=== PATIENT | male | born 1960 | race Caucasian/White ===

== ENCOUNTER 2017-05-01 13:56 | Observation (INO) ==
--- OUTSIDE RECORDS SUMMARY | 2017-05-01 14:08 | External Medical Summary | Referral Summary ---
:1960 Author Organization [facility] Address [address] [place] [address] Care Team Providers Name Role Phone Prasanth Tenorio Primary Care Physician Encounter [facility] Date(s): 12/10/14 - 12/10/14 [facility] [address] [place] [address]- [place] Discharge Diagnosis: Prostate cancer screening Discharge Diagnosis: Well adult exam Discharge Diagnosis: SCC (squamous cell carcinoma), face Discharge Diagnosis: Colon cancer screening Discharge Disposition: 01-Home or Self Care Attending Physician: Prasanth Tenorio MD Admitting Physician: Prasanth Tenorio MD Vital Signs Most recent to oldest [Reference Range]: 1 Peripheral Pulse Rate [60-100 bpm] 60 bpm (12/10/14 4:22 PM) Blood Pressure [90-140/60-90 mmHg] 122/78 mmHg (12/10/14 4:22 PM) Problem List Condition Effective Dates Status Health Status Informant Actinic keratosis(Confirmed) Active Adhesive capsulitis of left Active shoulder(Confirmed) Xerosis of skin(Confirmed) Active Bloating(Confirmed) Resolved Cutaneous horn(Confirmed) Active Head trauma(Confirmed) Active Skin cancer-HX OF SCC(Confirmed) Active Solar degeneration(Confirmed) Active Allergies, Adverse Reactions, Alerts No Known Medication Allergies Medications Bactrim DS 800 mg-160 mg oral tablet 1 tabs, Oral, BID, X 10 days, # 20 tabs, 0 Refill(s), Pharmacy: [id number] Start Date: 04/28/15 Stop Date: 05/08/15 Status: Orderedibuprofen 200 mg oral capsule 400 mg 2 caps, Oral, q4hr, as needed for pain, 0 Refill(s) Start Date: 11/29/14 Status: OrderedMucinex mg, Oral, q12hr, 0 Refill(s) Start Date: 01/02/15 Status: Orderedpolymyxin B-trimethoprim 10,000 units-1 mg/mL ophthalmic solution See Instructions, 1 drop the affected eye q3hr to 6 hours, # 5 mL, 0 Refill(s), Pharmacy: [id number] Start Date: 01/02/15 Status: Ordered Results No data available for this section Immunizations Vaccine Date Refusal Reason tetanus/diphth/pertuss (Tdap) adult/adol 11/25/11 Procedures Procedure Date Related Diagnosis Body Site Colonoscopy 2013 Tonsillectomy Social History Social History Type Response Smoking Status Never smoker Assessment and Plan Extracted from: Title: Wellness 95826 Author: Prasanth Tenorio MD Date: 12/10/14 Assessment/Plan 1.Well adult exam No new major complications. He does have good lifestyle choices. His weight is relatively stable and no other complications. 2.SCC (squamous cell carcinoma), face Subsequently removed and appears to be cured. 3.Prostate cancer screening No obvious signs of neoplasm. 4.Colon cancer screening No obvious neoplasm. His last colonoscopy was just 2 years ago so we'll continue to follow. Plan: He may certainly participate inany activities. I did fill outhis form for [employer]. Continue everything else as he is doing. No other testing at this time. I will see him back in ano ther year for comprehensive exam. If he has other problems, get back with me prior to that. Future Scheduled TestsReferralReturn to Clinic 01/02/15 9:52 PMReturn to Clinic 10:46 PM Referrals to Other Providers Referred by: Nathaly Douglas APRN Referred by: Nathaly Douglas APRN
--- OUTSIDE RECORDS SUMMARY | 2017-05-01 14:08 | External Medical Summary | Referral Summary ---
:1960 Author Organization [facility] Address [address] [place] [address] Care Team Providers Name Role Phone Prasanth Tenorio Primary Care Physician Encounter [facility] [id number] Date(s): 05/04/16 - 05/04/16 [facility] [address] [place] [address]- [place] Discharge Diagnosis: Seborrheic keratoses Discharge Diagnosis: History of basal cell carcinoma Discharge Diagnosis: Actinic keratoses Discharge Disposition: 01-Home or Self Care Attending Physician: Koby Delgadillo MD Admitting Physician: Koby Delgadillo MD Referring Physician: Prasanth Tenorio MD Vital Signs No data available for this section Problem List Condition Effective Dates Status Health Status Informant Actinic keratosis(Confirmed) Active Adhesive capsulitis of left Active shoulder(Confirmed) Xerosis of skin(Confirmed) Active Bloating(Confirmed) Resolved Cutaneous horn(Confirmed) Active Dyspepsia(Confirmed) Active Head trauma(Confirmed) Active Skin cancer-HX OF SCC(Confirmed) Active Encounter for well adult exam with Active abnormal findings(Confirmed) Prostate cancer screening(Confirmed) Active Solar degeneration(Confirmed) Active Allergies, Adverse Reactions, Alerts No Known Medication Allergies Medications Efudex 5% topical cream See Instructions, apply at bedtime to ears,neck,arms, and hands, # 40 g, 1 Refill(s), Pharmacy: [id number] Start Date: 08/28/15 Status: Orderedibuprofen 200 mg oral capsule 400 mg 2 caps, Oral, q4hr, as needed for pain, 0 Refill(s) Start Date: 11/29/14 Status: OrderedMucinex mg, Oral, q12hr, 0 Refill(s) Start Date: 01/02/15 Status: Orderedpolymyxin B-trimethoprim 10,000 units-1 mg/mL ophthalmic solution See Instructions, 1 drop the affected eye q3hr to 6 hours, # 5 mL, 0 Refill(s), Pharmacy: [id number] Start Date: 01/02/15 Status: Ordered Results No data available for this section Immunizations Vaccine Date Refusal Reason tetanus/diphth/pertuss (Tdap) adult/adol 11/25/11 Procedures Procedure Date Related Diagnosis Body Site Destruction (eg, laser surgery, electrosurgery, 05/04/16 cryosurgery, chemosurgery, surgical curettement), premalignant lesions (eg, actinic keratoses); first lesion Destruction (eg, laser surgery, electrosurgery, 05/04/16 cryosurgery, chemosurgery, surgical curettement), premalignant lesions (eg, actinic keratoses); second through 14 lesions, each (List separately in addition to code for first lesion) Colonoscopy 2010 Tonsillectomy Social History Social History Type Response Smoking Status Never smoker Assessment and Plan Extracted from: Title: Office Visit Note Author: Koby Delgadillo MD Date: 05/04/16 Assessment/Plan 1.Actinic keratoses -13 lesions; see physical examination above for locations -Cryotherapy x2 cycle(s) (10 second freeze-thaw cycle) -Encouraged monthly skin self-examination and warning signs of non-melanoma skin cancer discussed -Discussed proper sun protective behavior including: avoiding the hours of peak sun exposure (10am-2pm), wearing sunscreen SPF 30 or higher and reapplying every 2 hours for prolonged sun exposure, and wearing sun protective clothing including a wide brimmed hat -Return to clinic in6 months -Encouraged pt to schedule an earlier f/u appointment if concerning lesions develop or if treated lesions do not resolve in 6 weeks Ordered: Destruction premalignant lesion 1st 06608 Destruction premalignant lesion 2-14, Each 04519 Office Visit Level 3 Est 95623 2.Seborrheic keratoses -Reassurance regarding the benign nature of these lesions -Discussed ABCDEs of melanoma and recommended monthly skin self-examination -Recommended pt schedule a clinic appointment for anyconcerning lesions Ordered: Office Visit Level 3 Est 35280 3.History of basal cell carcinoma -No evidence of recurrence today -Warning signs of non-melanoma skin cancer discussed -Recommended monthly skin self-examination -Discussed proper sun protective behavior including: avoiding the hours of peak sun exposure (10am-2pm), wearing sunscreen SPF 30 or higher and reapplying every 2 hours for prolonged sun exposure, a nd wearing sun protective clothing including a wide brimmed hat -RTC 6 months
--- NOTE | 2017-05-01 14:10 | Emergency Department Report ---
General Adult HPI - General Stated complaint: cp Time Seen by Provider: 05/01/17 14:05 Source: patient Mode of arrival: ambulatory Limitations: no limitations - History of Present Illness HPI narrative: 66-year-old male presents the emergency department with a chief complaint of chest discomfort. Patient noted onset of symptoms today at approximately 0830 while sitting and watching a parade. Patient describes his discomfort as moderate. It is dull. It is a pressure sensation without radiation. He does not note any exacerbating or remitting factors. Patient denies any other complaints or associated symptoms. Symptoms have been persistent in nature since onset. Patient denies any personal history of coronary artery disease. He has never had a cardiac catheterization. He has had a stress test "several years ago." Patient does note a strong family history of coronary artery disease in his father at approximately the patient's age. - Related Data Home Medications Medication Instructions Recorded Confirmed Simvastatin 20 mg PO HS #30 10/09/16 05/01/17 Aspirin [Ecotrin] 81 mg PO HS 05/01/17 05/01/17 Cholecalciferol (Vitamin D3) 1 tab PO DAILY 05/01/17 05/01/17 [Vitamin D3] Cinnamon Bark [Cinnamon] 2 cap PO DAILY 05/01/17 05/01/17 Garlic 1 each PO DAILY 05/01/17 05/01/17 Metformin HCl [Metformin HCl ER] 1,000 mg PO HS 05/01/17 05/01/17 Sodium Chloride/Sodium Bicarb 1 spray IZABEL HS PRN 05/01/17 05/01/17 [Nasa Mist Saline [place]] Allergies Allergy/AdvReac Type Severity Reaction Status Date / Time No Known Allergies Allergy Verified 05/01/17 15:36 Review of Systems Constitutional: Denies: fever, chills Eyes: Denies: eye pain, vision change ENT: Denies: ear pain, throat pain Cardiovascular: Reports: chest pain. Denies: palpitations Respiratory: Denies: cough, dyspnea Gastrointestinal: Denies: abdominal pain, nausea, vomiting, diarrhea Genitourinary: Denies: urgency, dysuria Musculoskeletal: Denies: back pain, arthralgia Integumentary: Denies: erythema, rash Neurological: Denies: headache, numbness Psychiatric: Denies: anxiety, depression Endocrine: Denies: fatigue, heat or cold intolerance Hematological/Lymphatic: Denies: easy bleeding, easy bruising Allergic/Immunologic: Denies: facial swelling, urticaria PFSH Patient Stated Medical History Diabetes Mellitus Type 2 Yes: Metformin HLD, DM2 Surgical History: Tonsillectomy Family History: Reviewed and noncontributory. - Social History Smoking status: Never smoker Substance use type: does not use Alcohol intake frequency: does not drink Physical Exam - Limitations Limitations: no limitations - General General appearance: alert, in no apparent distress - Normal Exams: Head:: Normocephalic without trauma Eyes:: Pupils are PERRLA w/ EOMI, No scleral icterus, irritation, or foreign bodies noted ENMT:: No facial trauma, nasal exudates, pharyngeal erythema, or exudates are noted Dental: No fractured, loose, or missing teeth noted Neck:: Full range of motion, without adenopathy, JVD, bruits or thyromegaly Chest/Respirations:: Clear all lema, with good airflow, and symmetry bilaterally Cardiovascular:: Regular rate and rhythm, without murmur or gallop, Pulses 2+ all extremities, capillary refill, <2 seconds all extremities Abdomen:: Bowel sounds positive, soft, non-tender, non-distended, no hepatosplenomegaly, masses or bruits noted Lymphatic:: No lymphadenopathy, or lymphedema noted Musculoskeletal:: No tenderness, or deformity noted, good range of motion, all extremities Integumentary:: No rashes, hives, or bruising noted, hair and nails, without abnormality Neurological:: Patient is alert, and oriented, cranial nerves, motor/sensory/ cerebellar, exams w/o gross deficits, to observation Psychiatric:: Patient exhibits, appropriate attention, emotion and affect Course Vital Signs Temperature 98.6 F 05/01/17 13:56 Respiratory Rate 20 05/01/17 13:56 Temperature 99.9 F 05/01/17 15:36 Pulse Rate 91 05/01/17 15:48 Respiratory Rate 24 05/01/17 15:30 Blood Pressure 139/88 05/01/17 15:36 Pulse Oximetry 98 05/01/17 15:36 Medical Decision Making - MDM Narrative Medical decision making narrative: Labs / imaging were discussed in detail with the patient and questions are answered. Patient is given 324 mg of aspirin by mouth 1 in the emergency Department. Patient's EKGs are reviewed with Dr. Amirani of cardiology and questions are answered. Patient declines recommended sublingual nitroglycerin/ analgesic pain medication. Cardiology does not feel that STEMI criteria is noted on either EKG. Troponin is negative. Patient's symptoms began at approximately 0830 today and if this was a true cardiac process than his troponin should be elevated by now. Patient is admitted to the service of Dr. Bal in improved condition. He will be admitted to the CCU for further evaluation and treatment. Patient is in agreement with the current plan of management. No further orders from cardiology and recommendations were followed. - Differential Diagnosis SC, Pericarditis, Pneumothorax, Chest wall pain - Lab Data Result diagrams: 05/01/17 14:12 05/01/17 14:12 Lab Results 05/01/17 05/01/17 05/01/17 Range/Units 14:12 14:12 14:12 WBC 13.0 H (4.5-11.0) T/MM3 RBC 5.38 (4.50-5.90) M/MM3 Hgb 15.9 (13.5-17.5) GM/DL Hct 46.8 (41-53) % MCV 87.0 (80-100) UM3 MCH 29.6 (26-34) UUG MCHC 34.0 (31-37) GM/DL RDW Std Deviation 40.5 (36.9-50.2) FL Plt Count 193 (130-400) T/MM3 MPV 11.3 (9.4-12.4) UM3 Immature Gran % (Auto) Not performed Neut % (Auto) Not performed Lymph % (Auto) Not performed [place] % (Auto) Not performed Eos % (Auto) Not performed Baso % (Auto) Not performed Neut # (Auto) Not performed Lymph # (Auto) Not performed [place] # (Auto) Not performed Eos # (Auto) Not performed Baso # (Auto) Not performed Abs Immat Gran (auto) Not performed Neutrophils % (Manual) 92.0 H (33-66) % Lymphocytes % (Manual) 4.0 L (23-45) % Reactive Lymphs % 1.0 H (0-0) % Monocytes % (Manual) 2.0 (0-9.0) % Basophils % (Manual) 1.0 (0-2) % Neutrophils # (Manual) 12.0 H (1.8-7.7) T/MM3 Lymphocytes # (Manual) 0.5 L (1-4.8) T/MM3 Abs React Lymphs (Man) 0.1 H (0-0) T/MM3 Monocytes # (Manual) 0.3 (0-0.8) T/MM3 Basophils # (Manual) 0.1 (0-0.2) T/MM3 RBC Morph Comment Normal Turbidity < 20 (0-20) Sodium 143 (134-144) MEQ/L Potassium 3.7 (3.6-5) MEQ/L Chloride 103 (98-107) MEQ/L Carbon Dioxide 27 (22-30) MEQ/L Anion Gap 13 (5-15) MEQ/L BUN 18.0 (9-20) MG/DL Creatinine 1.0 (0.8-1.5) MG/DL GFR Calculation 77 BUN/Creatinine Ratio 18 (6-26) RATIO Glucose 149 H (75-110) MG/DL Calculated Osmolality 280 (261-280) MOSM/KG Calcium 9.1 (8.4-10.2) MG/DL Total Bilirubin 1.10 (0.20-1.30) MG/DL Icterus Index < 2 (0-7) AST 25 (17-59) U/L ALT 50 (21-72) U/L Alkaline Phosphatase 84 (38-126) U/L Troponin I < 0.012 (0-0.12) ng/ml C-Reactive Protein 8.2 (0-9) MG/L Total Protein 7.9 (6.3-8.2) G/DL Albumin 4.6 (3.5-5.0) G/DL Globulin 3.3 (2.4-3.6) G/DL Albumin/Globulin Ratio 1.4 (1.1-2.2) RATIO Specimen Hemolysis < 15 (0-25) - Radiology Data CXR - No acute processes. - EKG Data EKG #1 EKG results narrative: Sinus rhythm. 91 bpm. No STEMI. Ekg Reviewed with Dr. Bal of Cardiology. EKG #2 EKG results narrative: In her tachycardia. 100 bpm. No STEMI. Reviewed with Dr. Bal. Disposition Clinical Impression: Chest pain Qualifiers: Chest pain type: unspecified Qualified Code(s): R07.9 - Chest pain, unspecified Disposition: 02 To [facility] Acute Care Condition: Improved Time of Disposition: 14:45 (Admit. Dr. Bal. ) - Seen By: physician
--- OUTSIDE RECORDS SUMMARY | 2017-05-01 14:11 | External Medical Summary | Referral Summary ---
:1960 Author Organization [facility] Address [address] [place] [address] Care Team Providers Name Role Phone Prasanth Tenorio Primary Care Physician Encounter [facility] Date(s): 12/10/14 - 12/10/14 [facility] [address] [place] [address]- [place] Discharge Diagnosis: Prostate cancer [...] days, # 20 tabs, 0 Refill(s), Pharmacy: [id number] Start Date: 04/28/15 Stop Date: 05/08/15 Status: Orderedibuprofen 200 mg oral capsule 400 mg 2 caps, Oral, q4hr, as needed for pain, 0 Refill(s) Start Date: 11/29/14 Status: OrderedMucinex mg, Oral, q12hr, 0 Refill(s) Start Date: 01/02/15 Status: Orderedpolymyxin B-trimethoprim 10,000 units-1 mg/mL ophthalmic solution See Instructions, 1 drop the affected eye q3hr to 6 hours, # 5 mL, 0 Refill(s), Pharmacy: [id number] Start Date: 01/02/15 Status: Ordered Results No data available for this section Immunizations Vaccine Date Refusal Reason tetanus/diphth/pertuss (Tdap) adult/adol 11/25/11 Procedures Procedure Date Related Diagnosis Body Site Colonoscopy 2013 Tonsillectomy Social History Social History Type Response Smoking Status Never smoker Assessment and Plan Extracted from: Title: Wellness 10848 Author: Prasanth Tenorio MD Date: 12/10/14 Assessment/Plan [...] activities. I did fill outhis form for [employer] camp. Continue everything else as he is [...]
--- OUTSIDE RECORDS SUMMARY | 2017-05-01 14:11 | External Medical Summary | Referral Summary ---
:1960 Author Organization [facility] Address [address] [place] [address] Care Team Providers Name Role Phone Prasanth Tenorio Primary Care Physician Encounter [facility] Date(s): 10/17/15 - 10/17/15 [facility] [address] [place] [address]- [place] Discharge Diagnosis: Seborrheic keratoses Discharge Diagnosis: Neoplasm of uncertain behavior of skin Discharge Diagnosis: Dermatitis Discharge Diagnosis: Actinic keratoses Discharge Disposition: 01-Home or Self Care Attending Physician: Koby Delgadillo MD Referring Physician: Prasanth [...] hands, # 40 g, 1 Refill(s), Pharmacy: [facility] [id number] Start Date: 08/28/15 Status: Orderedibuprofen 200 mg oral capsule 400 mg 2 caps, Oral, q4hr, as needed for pain, 0 Refill(s) Start Date: 11/29/14 Status: OrderedMucinex mg, Oral, q12hr, 0 Refill(s) Start Date: 01/02/15 Status: Orderedpolymyxin B-trimethoprim 10,000 units-1 mg/mL ophthalmic solution See Instructions, 1 drop the affected eye q3hr to 6 hours, # 5 mL, 0 Refill(s), Pharmacy: [facility] [id number] Start Date: 01/02/15 Status: Orderedtriamcinolone 0.1% topical ointment 1 sandee, Topical, BID, Apply to affected areas twice daily., X 90 days, # 60 g, 1 Refill(s), Pharmacy:[facility] [id number] Start Date: 09/17/15 Stop Date: 03/15/16 Status: Ordered Results No data available for this section Immunizations Vaccine Date Refusal Reason tetanus/diphth/pertuss (Tdap) adult/adol 11/25/11 Procedures Procedure Date Related Diagnosis Body Site Biopsy of skin, subcutaneous tissue and/or mucous 10/17/15 membrane (including simple closure), unless otherwise listed; single lesion Destruction (eg, laser surgery, electrosurgery, 10/17/15 cryosurgery, chemosurgery, surgical curettement), premalignant lesions (eg, actinic keratoses); first lesion Destruction (eg, laser surgery, electrosurgery, 10/17/15 cryosurgery, chemosurgery, surgical curettement), premalignant lesions (eg, actinic keratoses); second through 14 lesions, each (List separately in addition to code for first lesion) Colonoscopy 2013 Tonsillectomy Social History Social History Type Response Smoking Status Never smoker Assessment and Plan Extracted from: Title: Office Visit Note Author: Koby Delgadillo MD Date: 10/17/15 Assessment/Plan 1.Neoplasm of uncertain behavior of skin -Location: L preauricular cheek -DDX: BCC vs ISK vs Alejandro hyperplasia; if NMSC I can treat this lesion in my procedure clinic -Shave biopsy today -Signed consent was obtained prior to the procedure. A photograph was obtained. The area was cleansed with an alcohol pad and 2 cc of 1% lidocaine with epinephrine was injected for local anesthesi a. The lesion was shaved using a dermablade and aluminum chloride was utilized for hemostasis. Vaseline ointment and a bandage was applied. The pt tolerated the procedure well and left the clinic in excellent condition. Ordered: Biopsy Of Skin, Single Lesion 33789 Office Visit Level 3 Est 84063 2.Actinic keratoses -3 lesions; see physical examination above for locations [...] 6 weeks Ordered: Destruction premalignant lesion 1st 05761 Destruction premalignant lesion 2-14, Each 60631 Office Visit Level 3 Est 74006 3.Seborrheic keratoses -Reassurance regarding the benign nature of these lesions -Discussed ABCDEs of melanoma and recommended monthly skin self-examination -Recommended pt schedule a clinic appointment for anyconcerning lesions Ordered: Office Visit Level 3 Est 99084 4.Dermatitis -Reaction to efudex with secondary impetiginization -Resolved currently -Continue emollient use in effected area twice daily. Ordered: Office Visit Level 3 Est 26073 Future Scheduled TestsReferralReturn to Clinic 01/02/15 9:52 PMReturn to Clinic 10:46 PM Referrals to Other Providers Referred by: Nathaly Douglas APRN Referred by: Nathaly Douglas APRN
--- OUTSIDE RECORDS SUMMARY | 2017-05-01 14:16 | External Medical Summary | Referral Summary ---
:1960 Author Organization [facility] Address [address] [place] [address] Care Team Providers Name Role Phone Prasanth Tenorio Primary Care Physician Encounter [facility] Date(s): 01/05/15 - 01/05/15 [facility] [address] [place] [address] - [place] Discharge Diagnosis: Acute URI Discharge Disposition: 01-Home or Self Care Attending Physician: Provider, Immediate Care Admitting Physician: Provider, Immediate Care Vital Signs Most recent to oldest [Reference Range]: 1 Temperature Oral [35.8-37.3 degC] 36.7 degC (01/05/15 1:08 PM) Peripheral Pulse Rate [60-100 bpm] 102 bpm *HI* (01/05/15 1:08 PM) Blood Pressure [90-140/60-90 mmHg] 131/85 mmHg (01/05/15 1:08 PM) SpO2 95 % (01/05/15 1:08 PM) Problem List Condition Effective Dates Status Health Status Informant Actinic keratosis(Confirmed) Active Adhesive capsulitis of left Active shoulder(Confirmed) Xerosis of skin(Confirmed) Active Bloating(Confirmed) Resolved Cutaneous horn(Confirmed) Active Head trauma(Confirmed) Active Skin cancer-HX OF SCC(Confirmed) Active Solar degeneration(Confirmed) Active Allergies, Adverse Reactions, Alerts No Known Medication Allergies Medications ibuprofen 200 mg oral capsule 400 mg 2 caps, Oral, q4hr, as needed for pain, 0 Refill(s) Start Date: 11/29/14 Status: OrderedMucinex mg, Oral, q12hr, 0 Refill(s) Start Date: 01/02/15 Status: Orderedpolymyxin B-trimethoprim 10,000 units-1 mg/mL ophthalmic solution See Instructions, 1 drop the affected eye q3hr to 6 hours, # 5 mL, 0 Refill(s), [id number] Start Date: 01/02/15 Status: Ordered Results No data available for this section Immunizations Vaccine Date Refusal Reason tetanus/diphth/pertuss (Tdap) adult/adol 11/25/11 Procedures Procedure Date Related Diagnosis Body Site Colonoscopy 2013 Tonsillectomy Social History Social History Type Response Smoking Status Never smoker Assessment and Plan Extracted from: Title: Office Visit Note Author: Monik Devi Date: 01/05/15 Assessment/Plan 1.Acute URI Z-Keith as directed. Promethazine with codeine as needed for cough. Resume use Mucinex as directed to help with congestion. If symptoms do not improve with treatment, follow-up for reevaluation. Ordered: Office Visit Level 3 Est 78151 Orders: promethazine-codeine, 5 mL, Oral, q4hr, as needed for cough, # 120 mL , 0 Refill(s) Future Scheduled TestsReferralReturn to Clinic 01/02/15 9:52 PMReturn to Clinic 10:46 PM Referrals to Other Providers Referred by: Nathaly Douglas APRN Referred by: Nathaly Douglas APRN
--- OUTSIDE RECORDS SUMMARY | 2017-05-01 14:16 | External Medical Summary | Referral Summary ---
:1960 Author Organization [facility] Address [address] [place] [address]- Care Team Providers Name Role Phone Prasanth Tenorio Primary Care Physician Encounter VC Date(s): 11/14/14 - 11/14/14 [facility] [address] [place] [address] - Discharge Disposition: 01-Home or Self Care Attending Physician: Armando Beverly Admitting Physician: Armando Beverly Referring Physician: Prasanth Tenorio MD Vital Signs [...] hours, # 5 mL, 0 Refill(s), Pharmacy: [id number] Start Date: 01/02/15 Status: Ordered Results No data available for this section Immunizations Vaccine Date Refusal Reason tetanus/diphth/pertuss (Tdap) adult/adol 11/25/11 Procedures Procedure Date Related Diagnosis Body Site Biopsy of skin, subcutaneous tissue and/or mucous 11/14/14 membrane (including simple closure), unless otherwise listed; single lesion Colonoscopy 2013 Tonsillectomy Social History Social History Type Response Smoking Status Never smoker Assessment and Plan Extracted from: Title: Office Visit Note Author: Armando Beverly Date: 11/14/14 Assessment/Plan Actinic dermatitis Instructed/reminded patient on correct application and use of sunscreen. Apply SPF 30 or higher with UVA and UVB protection. Ordered: Office Visit Level 3 Est 40944 Neoplasm of uncertain behavior of skin Shave biopsy was performed on the right scalp to rule out BCC versus SCC versus other. Area was cleansed with an alcohol pad and injected with 1% lidocaine and epinephrine. A blue blade was used for the shave removal; Drysol/light cauterization was used for hemostasis. Antibiotic ointment was applied and covered with a bandage/gauze. Specimen was sent to patho logy and we will notify patient of results as soon as it is available. Wound care instructions were given. The procedure and possible risk of scarring and infection was discussed in detail; consent forms were signed and all questions were answered. Ordered: Biopsy Of Skin, Single Lesion 93579 Office Visit Level 3 Est 51579 Future Scheduled TestsReferralReturn to Clinic 01/02/15 9:52 PMReturn to Clinic 10:46 PM Referrals to Other Providers Referred by: Nathaly Douglas APRN Referred by: Nathaly Douglas APRN
--- OUTSIDE RECORDS SUMMARY | 2017-05-01 14:16 | External Medical Summary | Referral Summary ---
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 Discharge Disposition: 01-Home or Self Care Attending Physician: Diane Dominguez Admitting Physician: Diane Dominguez Vital Signs No data available for this [...] hours, # 5 mL, 0 Refill(s), Pharmacy: [facility] [id number] Start Date: 01/02/15 Status: Ordered Results No data available for this section Immunizations Vaccine Date Refusal Reason tetanus/diphth/pertuss (Tdap) adult/adol 11/25/11 Procedures Procedure Date Related Diagnosis Body Site Colonoscopy 2013 Tonsillectomy Social History Social History Type Response Smoking Status Never smoker Assessment and Plan Future Scheduled TestsReferralReturn to Clinic 01/02/15 9:52 PMReturn to Clinic 10:46 PM Referrals to Other Providers Referred by: Nathaly Douglas APRN Referred by: Nathaly Douglas APRN
--- OUTSIDE RECORDS SUMMARY | 2017-05-01 14:16 | External Medical Summary | Referral Summary ---
:1960 Author Organization [facility] Address [address] [place] [address] Care Team Providers Name Role Phone Prasanth Tenorio Primary Care Physician Encounter [facility] Date(s): 04/28/15 - 04/28/15 [facility] [address] [place] [address] - [place] Discharge Diagnosis: Infected puncture wound of hand Discharge Disposition: 01-Home or Self Care Attending Physician: Margret Champagne Attending Physician: Provider, Immediate Care Admitting Physician: Provider, Immediate Care Vital Signs Most recent to oldest [Reference Range]: 1 Temperature Oral [35.8-37.3 degC] 36.8 degC (04/28/15 1:06 PM) Peripheral Pulse Rate [60-100 bpm] 68 bpm (04/28/15 1:06 PM) Blood Pressure [90-140/60-90 mmHg] 131/81 mmHg (04/28/15 1:06 PM) SpO2 97 % (04/28/15 1:06 PM) Problem List Condition Effective Dates Status [...] days, # 20 tabs, 0 Refill(s), Pharmacy: [facility] [id number] Start Date: 04/28/15 Stop Date: 05/08/15 Status: Orderedibuprofen 200 mg oral capsule 400 mg 2 caps, Oral, q4hr, as needed for pain, 0 Refill(s) Start Date: 11/29/14 Status: OrderedMucinex mg, Oral, q12hr, 0 Refill(s) Start Date: 01/02/15 Status: Orderedpolymyxin B-trimethoprim 10,000 units-1 mg/mL ophthalmic solution See Instructions, 1 drop the affected eye q3hr to 6 hours, # 5 mL, 0 Refill(s), [id number] Start Date: 01/02/15 Status: Ordered Results No data available for this section Immunizations Vaccine Date Refusal Reason tetanus/diphth/pertuss (Tdap) adult/adol 11/25/11 Procedures Procedure Date Related Diagnosis Body Site Colonoscopy 2013 Tonsillectomy Social History Social History Type Response Smoking Status Never smoker Assessment and Plan Extracted from: Title: Ambulatory Patient Education Author: Margret Champagne Date: 04/28/15 Family Medicine Puncture Wound A puncture wound is an injury that extends through all layers of the skin and into the tissue beneath the skin (subcutaneous tissue). Puncture wounds become infected easily because germs often enter the body and go beneath the skin during the injury. Having a deep wound with a small entrance point makes it difficult for your caregiver to adequately clean the wound. This is especially true if you have stepped on a nail and it has passed through a dirty shoe or other situations where the wound is obviously contaminated. CAUSES Many puncture wounds involve glass, nails, splinters, fish hooks, or other objects that enter the skin (foreign bodies). A puncture wound may also be caused by a human bite or animal bite. DIAGNOSIS A puncture wound is usually diagnosed by your history and a physical exam. You may need to have an X-ray or an ultrasound to check for any foreign bodies still in the wound. TREATMENT Your caregiver will clean the wound as thoroughly as possible. Depending on the location of the wound, a bandage (dressing) may be applied. Your caregiver might prescribe antibiotic medicines. You may need a follow-up visit to check on your wound. Follow all instructions as directed by your caregiver. HOME CARE INSTRUCTIONS Change your dressing once per day, or as directed by your caregiver. If the dressing sticks, it may be removed by soaking the area in water. If your caregiver has given you follow-up instructions, it is very important that you return for a follow-up appointment. Not following up as directed could result in a chronic or permanent injury, pain, and disability. Only take giyd-pay-athftgk or prescription medicines for pain, discomfort , or fever as directed by your caregiver. If you are given antibiotics, take them as directed. Finish them even if you start to feel better. You may need a tetanus shot if: You cannot remember when you had your last tetanus shot. You have never had a tetanus shot. If you got a tetanus shot, your arm may swell, get red, and feel warm to the touch. This is common and not a problem. If you need a tetanus shot and you choose not to have one, there is a rare chance of getting tetanus. Sickness from tetanus can be serious. You may need a rabies shot if an animal bite caused your puncture wound. SEEK MEDICAL CARE IF: You have redness, swelling, or increasing pain in the wound. You have red streaks going away from the wound. You notice a bad smell coming from the wound or dressing. You have yellowish-white fluid (pus) coming from the wound. You are treated with an antibiotic for infection, but the infection is not getting better. You notice something in the wound, such as rubber from your shoe, cloth, or another object. You have a fever. You have severe pain. You have difficulty breathing. You feel dizzy or faint. You cannot stop vomiting. You lose feeling, develop numbness, or cannot move a limb below the wound. Your symptoms worsen. MAKE SURE YOU: Understand these instructions. Will watch your condition. Will get help right away if you are not doing well or get worse. Document Released: 03/24/2006 Document Revised: 09/05/2012 Document Reviewed: 12/01/2011 ExitCare Patient Information 2015 [employer], [place]. This information is not intended to replace advice given to you by your health care provider. Make sure you discuss any questions you have with your health care provider. No follow up information was provided. Extracted from: Title: Office Visit Note Author: Margret Champagne Date: 04/28/15 Assessment/Plan Infected puncture wound of hand Rocephin 1mg IM provided. Rest, ice elevate. FU tomorrow if not improving. Start Bactrim DS 1 po bid. Tdap up to date. Loose gauze wrapping provided. Questions were an swered. Patient verbalized understanding. Patient left in stable condition. Ordered: Office Visit Level 3 Est 14625 Orders: sulfamethoxazole-trimethoprim, 1 tabs, Oral, BID, X 10 days, # 20 tabs, 0 Refill(s), [facility] [id number] Future Scheduled TestsReferralReturn to Clinic 01/02/15 9:52 PMReturn to Clinic 10:46 PM Referrals to Other Providers Referred by: Nathaly Douglas APRN Referred by: Nathaly Douglas APRN
--- OUTSIDE RECORDS SUMMARY | 2017-05-01 14:16 | External Medical Summary | Referral Summary ---
:1960 Author Organization [facility] Address [address] [place] [address] Care Team Providers Name Role Phone Prasanth Tenorio Primary Care Physician Encounter VC Date(s): 08/28/15 - 08/28/15 [facility] [address] [place] [address]- [place] Discharge Disposition: 01-Home or Self Care Attending [...] hands, # 40 g, 1 Refill(s), Pharmacy: [facility] [id number] Start Date: 08/28/15 Status: Orderedibuprofen 200 mg oral capsule 400 mg 2 caps, Oral, q4hr, as needed for pain, 0 Refill(s) Start Date: 11/29/14 Status: OrderedMucinex mg, Oral, q12hr, 0 Refill(s) Start Date: 01/02/15 Status: Orderedpolymyxin B-trimethoprim 10,000 units-1 mg/mL ophthalmic solution See Instructions, 1 drop the affected eye q3hr to 6 hours, # 5 mL, 0 Refill(s), Pharmacy: [facility] [id number] Start Date: 01/02/15 Status: Ordered Results No data available for this section Immunizations Vaccine Date Refusal Reason tetanus/diphth/pertuss (Tdap) adult/adol 11/25/11 Procedures Procedure Date Related Diagnosis Body Site Colonoscopy 2013 Tonsillectomy Social History Social History Type Response Smoking Status Never smoker Assessment and Plan Extracted from: Title: Office Visit Note Author: Armando Beverly Date: 08/28/15 Assessment/Plan AK (actinic keratosis) Efudex qhs x6 weeks to the scalp, neck, forearms, and dorsum hands. Discussed possible risks and side effects of the medications. Continue photoprotection. Follow up in 6 months, sooner if needed. Ordered: Office Visit Level 3 Est 13061 Photoaging of skin Continue to monitor skin for changes and to follow up if any changes are seen. Instructed/reminded patient of proper application and use of sunscreen. Apply SPF 30 or higher with UV A and UVB protection. Skin cancersdiscussed and handout/information given. Recommend yearly skin evaluations. Ordered: Office Visit Level 3 Est 14180 Future Scheduled TestsReferralReturn to Clinic 01/02/15 9:52 PMReturn to Clinic 10:46 PM Referrals to Other Providers Referred by: Nathaly Douglas APRN Referred by: Nathaly Douglas APRN
--- OUTSIDE RECORDS SUMMARY | 2017-05-01 14:16 | External Medical Summary | Referral Summary ---
:1960 Author Organization [facility] Address [address] [place] [address] Care Team Providers Name Role Phone Prasanth Tenorio Primary Care Physician Encounter [facility] Date(s): 12/10/14 - 12/10/14 [facility] [address] [place] [address]- [place] Discharge Diagnosis: Prostate cancer [...] days, # 20 tabs, 0 Refill(s), Pharmacy: [facility] [id number] Start Date: 04/28/15 Stop Date: 05/08/15 Status: Orderedibuprofen 200 mg oral capsule 400 mg 2 caps, Oral, q4hr, as needed for pain, 0 Refill(s) Start Date: 11/29/14 Status: OrderedMucinex mg, Oral, q12hr, 0 Refill(s) Start Date: 01/02/15 Status: Orderedpolymyxin B-trimethoprim 10,000 units-1 mg/mL ophthalmic solution See Instructions, 1 drop the affected eye q3hr to 6 hours, # 5 mL, 0 Refill(s), Pharmacy: [facility] [id number] Start Date: 01/02/15 Status: Ordered Results No data available for this section Immunizations Vaccine Date Refusal Reason tetanus/diphth/pertuss (Tdap) adult/adol 11/25/11 Procedures Procedure Date Related Diagnosis Body Site Colonoscopy 2013 Tonsillectomy Social History Social History Type Response Smoking Status Never smoker Assessment and Plan Extracted from: Title: Wellness 27676 Author: Prasanth Tenorio MD Date: 12/10/14 Assessment/Plan [...] activities. I did fill outhis form for [employer]. Continue everything else as he is [...]
--- OUTSIDE RECORDS SUMMARY | 2017-05-01 14:16 | External Medical Summary | Referral Summary ---
:1960 Author Organization [facility] Address [address] [place] [address] Care Team Providers Name Role Phone Prasanth Tenorio Primary Care Physician Encounter [facility] Date(s): 12/10/14 - 12/10/14 [facility] [address] [place] [address]- [place] Discharge Diagnosis: Prostate cancer [...] hours, # 5 mL, 0 Refill(s), Pharmacy: [facility] [id number] Start Date: 01/02/15 Status: Ordered Results No data available for this section Immunizations Vaccine Date Refusal Reason tetanus/diphth/pertuss (Tdap) adult/adol 11/25/11 Procedures Procedure Date Related Diagnosis Body Site Colonoscopy 2013 Tonsillectomy Social History Social History Type Response Smoking Status Never smoker Assessment and Plan Extracted from: Title: Wellness 11390 Author: Prasanth Tenorio MD Date: 12/10/14 Assessment/Plan [...] activities. I did fill outhis form for [employer]. Continue everything else as he is doing. No other testing at this time. I will [facility] for comprehensive exam. If he has other problems, get back with me prior to that. Future Scheduled TestsReferralReturn to Clinic 01/02/15 9:52 PMReturn to Clinic 10:46 PM Referrals to Other Providers Referred by: Nathaly Douglas APRN Referred by: Nathaly Douglas APRN
--- OUTSIDE RECORDS SUMMARY | 2017-05-01 14:16 | External Medical Summary | Referral Summary ---
:1960 Author Organization [facility] Address [address] [place] [address] Care Team Providers Name Role Phone Prasanth Tenorio Primary Care Physician Encounter VC Date(s): 10/30/15 - 10/30/15 [facility] [address] [place] [address]- [place] Discharge Diagnosis: Basal cell carcinoma of left cheek Discharge Diagnosis: Actinic keratosis Discharge Disposition: 01-Home or Self Care Attending [...] hands, # 40 g, 1 Refill(s), Pharmacy: [id number] Start Date: 08/28/15 Status: Orderedibuprofen 200 mg oral capsule 400 mg 2 caps, Oral, q4hr, as needed for pain, 0 Refill(s) Start Date: 11/29/14 Status: OrderedMucinex mg, Oral, q12hr, 0 Refill(s) Start Date: 01/02/15 Status: Orderedpolymyxin B-trimethoprim 10,000 units-1 mg/mL ophthalmic solution See Instructions, 1 drop the affected eye q3hr to 6 hours, # 5 mL, 0 Refill(s), Pharmacy: [facility] [id number] Start Date: 01/02/15 Status: Orderedtriamcinolone 0.1% topical ointment 1 sandee, Topical, BID, Apply to affected areas twice daily., X 90 days, # 60 g, 1 Refill(s), Pharmacy:[id number] Start Date: 09/17/15 Stop Date: 03/15/16 Status: Ordered Results No data available for this section Immunizations Vaccine Date Refusal Reason tetanus/diphth/pertuss (Tdap) adult/adol 11/25/11 Procedures Procedure Date Related Diagnosis Body Site Destruction (eg, laser surgery, electrosurgery, 10/30/15 cryosurgery, chemosurgery, surgical curettement), premalignant lesions (eg, actinic keratoses); first lesion Excision, malignant lesion including margins, 10/30/15 face, ears, eyelids, nose, lips; excised diameter 1.1 to 2.0 cm Repair, intermediate, wounds of face, ears, 10/30/15 eyelids, nose, lips and/or mucous membranes; 2.6 cm to 5.0 cm Colonoscopy 2013 Tonsillectomy Social History Social History Type Response Smoking Status Never smoker Assessment and Plan Extracted from: Title: Ambulatory Patient Education Author: Koby Delgadillo MD Date: Family Medicine Excision of Skin Lesions Excision of a skin lesion refers to the removal of a section of skin by making small cuts (incisions) in the skin. This is typically done to remove a cancerous growth (basal cell carcinoma, squamous irma l carcinoma, or melanoma) or a noncancerous growth (cyst). It may be done to treat or prevent cancer or infection. It may also be done to improve cosmetic appearance (removal of mole, skin tag). LET YOUR CAREGIVER KNOW ABOUT: Allergies to food or medicine. Medicines taken, including vitamins, herbs, eyedrops, dnyj-jcf-cwrhkvq medicines, and creams. Use of steroids (by mouth or creams). Previous problems with anesthetics or numbing medicines. History of bleeding problems or blood clots. History of any prostheses. Previous surgery. Other health problems, including diabetes and kidney problems. Possibility of , if this applies. RISKS AND COMPLICATIONS Many complications can be managed. With appropriate treatment and rehabilitation, the following complications are very uncommon: Bleeding. Infection. Scarring. Recurrence of cyst or cancer. Changes in skin sensation or appearance (discoloration, swelling). Reaction to anesthesia. Allergic reaction to surgical materials or ointments. Damage to nerves, blood vessels, muscles, or other structures. Continued pain. BEFORE THE PROCEDURE It is important to follow your caregiver's instructions prior to your procedure to avoid complications. Steps before your procedure may include: Physical exam, blood tests, other procedures, such as removing a small sample for examination under a microscope (biopsy). Your caregiver may review the procedure, the anesthesia being used, and what to expect after the procedure with you. You may be asked to: Stop taking certain medicines, such as blood thinners (including aspirin , clopidogrel, ibuprofen), for several days prior to your procedure. Take certain medicines. Stop smoking. It is a good idea to arrange for a ride home after surgery and to have someone to help you with activities during recovery. PROCEDURE There are several excision techniques. The type of excision or surgical technique used will depend on your condition, the location of the lesion, and your overall health. After the lesion is sterilized and a local anesthetic is applied, the following may be performed: Complete surgical excision The area to be removed is marked with a pen. Using a small scalpel and scissors , the surgeon gently cuts around and under the lesion until it is completely removed. The lesion is placed in a special flu id and sent to the lab for examination. If necessary, bleeding will be controlled with a device that delivers heat. The edges of the wound are stitched together and a dressing is applied. This procedure may be performed to treat a cancerous growth or noncancerous cyst or lesion. Surgeons commonly perform an elliptical excision, to minimize scarring. Excision of a cyst The surgeon makes an incision on the cyst. The entire cyst is removed through the incision. The wound may be closed with a suture (stitch). Shave excision During shave excision, the surgeon uses a small blade or loop instrument to shave off the lesion. This may be done to remove a mole or skin tag. The wound is usually left to heal on its own without stitches. Punch excision During punch excision, the surgeon uses a small, round tool (like a cookie cutter) to cut a burns paiute shape out of the skin. The outer edges of the skin are stitched together. This may be done to remove a mole or scar or to perform a biopsy of the lesion. Mohs micrographic surgery During Mohs micrographic surgery, layers of the lesion are removed with a scalpel or loop instrument and immediately examined under a microscope until all of the abnormal or cancerous tissue is removed. This procedure is minimally invasive and ensures the best cosmetic outcome, with removal of as little normal tissue as possible. Mohs is usually done to treat skin cancer, such as basal cell carcinoma or squamous cell carcinoma, particularly on the face and ears. Antibiotic ointment is applied to the surgical area after each of the procedures listed above, as necessary. AFTER THE PROCEDURE How well you heal depends on many factors. Most patients heal quite well with proper techniques and self-care. Scarring will lessen over time. HOME CARE INSTRUCTIONS Take medicines for pain as directed. Keep the incision area clean, dry, and protected for at least 48 hours. Change dressings as directed. For bleeding, apply gentle but firm pressure to the wound using a folded towel for 20 minutes. Call your caregiver if bleeding does not stop. Avoid high-impact exercise and activities until the stitches are removed or the area heals. Follow your caregiver's instructions to minimize scarring. Avoid sun exposure until the area has healed. Scarring should lessen over time. Follow up with your caregiver as directed. Removal of stitches within 4 to 14 days may be necessary. Finding out the results of your test Not all test results are available during your visit. If your test results are not back during the visit, make an appointment with your caregiver to find out the results. Do not assume everything is nor mal if you have not heard from your caregiver or the medical facility. It is important for you to follow up on all of your test results. SEEK MEDICAL CARE IF: You or your child has an oral temperature above 102 F (38.9 C). You develop signs of infection (chills, feeling unwell). You notice bleeding, pain, discharge, redness, or swelling at the incision site. You notice skin irregularities or changes in sensation. MAKE SURE YOU: Understand these instructions. Will watch your condition. Will get help right away if you are not doing well or get worse. FOR MORE INFORMATION [employer]: www.aafp.org [employer]: www.aad.org This information is not intended to replace advice given to you by your health care provider. Make sure you discuss any questions you have with your health care provider. Document Released: 09/08/2010 Document Revised: 09/05/2012 Document Reviewed: 09/08/2010 Exit[employer] Patient Information 2014 [employer]. No follow up information was provided. Extracted from: Title: Office Visit Note Author: Koby Delgadillo MD Date: 10/30/15 Assessment/Plan 1.Basal cell carcinoma of left cheek Options/risks/benefits of the procedure were discussed and explained and signed consent was obtained. Specifically discussed risks of scarring, abnormal scar ring, skin changes such as color or texture changes, recurrence, incomplete removal, bleeding, infection, need for further treatment, damage to surrounding structures including nerves and other unexpect ed risks/outcomes of these types of skin procedures. The patient agreed to proceed with treatment. The sites were confirmed with the patient. Final timeout performed. LOCATION:Left preauricular cheek PROCEDURE: Excise with4 mm margins and close with intermediate complexity primary closure LESION SIZE (including margins):1.2 x 1.0cm FINAL INCISION LENGTH:3 cm ANESTHESIA: 1%lidocaine with 1/100,000 epinephrine=3 cc total PREP: Chlorhexidine PATH SENT: [facility] MEDICATION REVIEW: Prior to procedure, determined whether patient is taking anticoagulant medications, which (s)he is not. COMPLICATIONS: none EBL: <3cc Lesion and surrounding area were then prepped and draped in the usual, sterile fashion. The lesion was excised in an elliptical fashion with 4 mm margins to fat. Wound edges were undermined with a sca lpel. Electrocautery was used for hemostasis.4-0PDS interrupted subcutaneous sutures were placed to approximate wound edges. A runningsimple stitch with5-0 prolene suture was placed. A pressure dressing was placed. The patient tolerated the procedure well. No complications. Post-operative PLAN: - Remove pressure dressing in24 hours - Wound instructions given. - Counselled: Warnings and instructions re: bleeding and signs and symptoms of infection and hematoma. Pt provided withclinic phone number. - Pain Control: Tylenol 325 to 650mg PO q6 hours prn - Antibiotics: None indicated - Treatment plan was discussed with patient - Return to clinic7 days for sutural removal Ordered: Exc Mal Les Face Ears Nose Lips 1.1-2.0cm 66496 Intermediate Repair Wounds; Face Ears Eyelids Nose Lips 2.6-5.0cm 79633 2.Actinic keratosis -1 lesions; see physical examination above for locations [...] 6 weeks Ordered: Destruction premalignant lesion 1st 34285 Future Scheduled TestsReferralReturn to Clinic 01/02/15 9:52 PMReturn to Clinic 10:46 PM Referrals to Other Providers Referred by: Nathaly Douglas APRN Referred by: Nathaly Douglas APRN
--- OUTSIDE RECORDS SUMMARY | 2017-05-01 14:16 | External Medical Summary | Referral Summary ---
:1960 Author Organization [facility] Address [address] [place] [address] Care Team Providers Name Role Phone Prasanth Tenorio Primary Care Physician Encounter [facility] Date(s): 12/10/14 - 12/10/14 [facility] [address] [place] [address]- [place] Discharge Diagnosis: Prostate cancer [...] days, # 20 tabs, 0 Refill(s), Pharmacy: [facility] [id number] Start Date: 04/28/15 Stop Date: 05/08/15 Status: Orderedibuprofen 200 mg oral capsule 400 mg 2 caps, Oral, q4hr, as needed for pain, 0 Refill(s) Start Date: 11/29/14 Status: OrderedMucinex mg, Oral, q12hr, 0 Refill(s) Start Date: 01/02/15 Status: Orderedpolymyxin B-trimethoprim 10,000 units-1 mg/mL ophthalmic solution See Instructions, 1 drop the affected eye q3hr to 6 hours, # 5 mL, 0 Refill(s), Pharmacy: [id number] Start Date: 01/02/15 Status: Ordered Results No data available for this section Immunizations Vaccine Date Refusal Reason tetanus/diphth/pertuss (Tdap) adult/adol 11/25/11 Procedures Procedure Date Related Diagnosis Body Site Colonoscopy 2013 Tonsillectomy Social History Social History Type Response Smoking Status Never smoker Assessment and Plan Extracted from: Title: Wellness 83038 Author: Prasanth Tenorio MD Date: 12/10/14 Assessment/Plan [...] activities. I did fill outhis form for [employer]. Continue everything else as he is [...]
--- OUTSIDE RECORDS SUMMARY | 2017-05-01 14:16 | External Medical Summary | Referral Summary ---
:1960 Author Organization [facility] Address [address] [place] [address] Care Team Providers Name Role Phone Prasanth Tenorio Primary Care Physician Encounter [facility] Date(s): 12/10/14 - 12/10/14 [facility] [address] [place] [address]- [place] Discharge Diagnosis: Prostate cancer [...] days, # 20 tabs, 0 Refill(s), Pharmacy: [facility] [id number] Start Date: 04/28/15 Stop Date: 05/08/15 Status: Orderedibuprofen 200 mg oral capsule 400 mg 2 caps, Oral, q4hr, as needed for pain, 0 Refill(s) Start Date: 11/29/14 Status: OrderedMucinex mg, Oral, q12hr, 0 Refill(s) Start Date: 01/02/15 Status: Orderedpolymyxin B-trimethoprim 10,000 units-1 mg/mL ophthalmic solution See Instructions, 1 drop the affected eye q3hr to 6 hours, # 5 mL, 0 Refill(s), Pharmacy: [facility] [address] Start Date: 01/02/15 Status: Ordered Results No data available for this section Immunizations Vaccine Date Refusal Reason tetanus/diphth/pertuss (Tdap) adult/adol 11/25/11 Procedures Procedure Date Related Diagnosis Body Site Colonoscopy 2013 Tonsillectomy Social History Social History Type Response Smoking Status Never smoker Assessment and Plan Extracted from: Title: Wellness 06926 Author: Prasanth Tenorio MD Date: 12/10/14 Assessment/Plan [...] activities. I did fill outhis form for [employer]. Continue everything else as he is [...]
--- OUTSIDE RECORDS SUMMARY | 2017-05-01 14:16 | External Medical Summary | Referral Summary ---
:1960 Author Organization [facility] Address [address] [place] [address] Care Team Providers Name Role Phone Prasanth Tenorio Primary Care Physician Encounter [facility] Date(s): 11/13/14 - 11/13/14 [facility] [address] [place] [address]- [place] Discharge Diagnosis: Scalp lesion Discharge Disposition: 01-Home or Self Care Attending Physician: Nathaly Douglas APRN Admitting Physician: Nathaly Douglas APRN Vital Signs Most recent to oldest [Reference Range]: 1 Peripheral Pulse Rate [60-100 bpm] 60 bpm (11/13/14 3:44 PM) Blood Pressure [90-140/60-90 mmHg] 140/100 mmHg (11/13/14 3:44 PM) Problem List Condition Effective Dates Status [...] hours, # 5 mL, 0 Refill(s), Pharmacy: [facility] [id number] Start Date: 01/02/15 Status: Ordered Results No data available for this section Immunizations Vaccine Date Refusal Reason tetanus/diphth/pertuss (Tdap) adult/adol 11/25/11 Procedures Procedure Date Related Diagnosis Body Site Colonoscopy 2013 Tonsillectomy Social History Social History Type Response Smoking Status Never smoker Assessment and Plan Extracted from: Title: Office Visit Note-scalp lesion n Author: Nathaly Douglas APRN Date : 11/13/14 shoulder px Assessment/Plan 1.Scalp lesion Lesion is likely associated with a basal cell carcinoma. Patient is referred to a career orientation teacher for evaluation and treatment. Biopsy and lesion removal are recommended. 2.Shoulder pain Left shoulder x-ray showsa small osteophyte off of the inferior glenoid. Other than that there is no bony abnormality at this time. This is likely associated with soft tissue inj ury. I will send patient to an orthopedics for further evaluation and treatment. Future Scheduled TestsReferralReturn to Clinic 01/02/15 9:52 PMReturn to Clinic 10:46 PM Referrals to Other Providers Referred by: Nathaly Douglas APRN Referred by: Nathaly Douglas APRN
--- OUTSIDE RECORDS SUMMARY | 2017-05-01 14:20 | External Medical Summary | Referral Summary ---
:1960 Author Organization [facility] Address [address] [place] [address] Care Team Providers Name Role Phone Prasanth Tenorio Primary Care Physician Encounter [facility] Date(s): 02/26/15 - 02/26/15 [facility] [address] [place] [address]- [place] Discharge Disposition: 01-Home or [...] hands, # 40 g, 1 Refill(s), Pharmacy: [facility] [id number] Start Date: 08/28/15 Status: Orderedibuprofen 200 mg oral capsule 400 mg 2 caps, Oral, q4hr, as needed for pain, 0 Refill(s) Start Date: 11/29/14 Status: OrderedMucinex mg, Oral, q12hr, 0 Refill(s) Start Date: 01/02/15 Status: Orderedpolymyxin B-trimethoprim 10,000 units-1 mg/mL ophthalmic solution See Instructions, 1 drop the affected eye q3hr to 6 hours, # 5 mL, 0 Refill(s), Pharmacy: [facility] [id number] Start Date: 01/02/15 Status: Ordered Results No data available for this section Immunizations Vaccine Date Refusal Reason tetanus/diphth/pertuss (Tdap) adult/adol 11/25/11 Procedures Procedure Date Related Diagnosis Body Site Destruction (eg, laser surgery, electrosurgery, 02/26/15 cryosurgery, chemosurgery, surgical curettement), premalignant lesions (eg, actinic keratoses), 15 or more lesions.. Colonoscopy 2013 Tonsillectomy Social History Social History Type Response Smoking Status Never smoker Assessment and Plan Extracted from: Title: Office Visit Note Author: Armando Beverly Date: 02/26/15 Assessment/Plan AK (actinic keratosis) 21lesions were treated with LN2: scalp x5, face x3, rightarm x8,back x2left arm x3. Aftercare instructions were given to patient. Risks of scarring, infection, blisteri ng, and recurrence were discussed as well. Continue photoprotection. Follow up in 6 months, sooner if needed. Pt will consider Effudex tx during the fall and winter months; will follow up with us first. Ordered: Destruction of 15 or more premalignant lesions 05550 Office Visit Level 4 Est 19492 Photoaging of skin Continue to monitor skin for changes and to follow up if any changes are seen. Instructed/reminded patient of proper application and use of sunscreen. Apply SPF 30 or higher with UV A and UVB protection. Skin cancer discussed and handout given. Recommend yearly skin evaluations. Ordered: Office Visit Level 4 Est 85204 Seborrheic keratosis Benign, asymptomatic; reassurance was given. Ordered: Office Visit Level 4 Est 71514 Future Scheduled TestsReferralReturn to Clinic 01/02/15 9:52 PMReturn to Clinic 10:46 PM Referrals to Other Providers Referred by: Nathaly Douglas APRN Referred by: Nathaly Douglas APRN
--- OUTSIDE RECORDS SUMMARY | 2017-05-01 14:20 | External Medical Summary | Referral Summary ---
:1960 Author Organization [facility] Address [address] [place] [address] Care Team Providers Name Role Phone Prasanth Tenorio Primary Care Physician Encounter [facility] Date(s): 11/06/15 - 11/06/15 [facility] [address] [place] [address]- [place] Discharge Disposition: 01-Home or [...] hands, # 40 g, 1 Refill(s), Pharmacy: [id number] Start Date: 08/28/15 Status: Orderedibuprofen 200 mg oral capsule 400 mg 2 caps, Oral, q4hr, as needed for pain, 0 Refill(s) Start Date: 11/29/14 Status: OrderedMucinex mg, Oral, q12hr, 0 Refill(s) Start Date: 01/02/15 Status: Orderedpolymyxin B-trimethoprim 10,000 units-1 mg/mL ophthalmic solution See Instructions, 1 drop the affected eye q3hr to 6 hours, # 5 mL, 0 Refill(s), Pharmacy: [facility] [id number] Start Date: 01/02/15 Status: Orderedtriamcinolone 0.1% topical ointment 1 sandee, Topical, BID, Apply to affected areas twice daily., X 90 days, # 60 g, 1 Refill(s), Pharmacy:[id number] Start Date: 09/17/15 Stop Date: 03/15/16 Status: [...]
--- OUTSIDE RECORDS SUMMARY | 2017-05-01 14:20 | External Medical Summary | Referral Summary ---
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 Discharge Disposition: 01-Home or Self Care Attending Physician: Escobar Graf MD Admitting Physician: Escobar Graf MD Vital Signs No data available for [...] hours, # 5 mL, 0 Refill(s), Pharmacy: [id number] Start Date: 01/02/15 Status: Ordered Results No data available for this section Immunizations Vaccine Date Refusal Reason tetanus/diphth/pertuss (Tdap) adult/adol 11/25/11 Procedures Procedure Date Related Diagnosis Body Site Adjacent tissue transfer or rearrangement, 11/29/14 forehead, cheeks, chin, mouth, neck, axillae, genitalia, hands and/or feet; defect 10 sq cm or less Colonoscopy 2013 Tonsillectomy Social History Social History Type Response Smoking Status Never smoker Assessment and Plan Future Scheduled TestsReferralReturn to Clinic 01/02/15 9:52 PMReturn to Clinic 10:46 PM Referrals to Other Providers Referred by: Nathaly Douglas APRN Referred by: Nathaly Douglas APRN
--- OUTSIDE RECORDS SUMMARY | 2017-05-01 14:20 | External Medical Summary | Referral Summary ---
:1960 Author Organization [facility] Address [address] [place] [address] Care Team Providers Name Role Phone Prasanth Tenorio Primary Care Physician Encounter [facility] [phone] Date(s): 08/24/16 - 08/24/16 [facility] [address] [place] [address]- [place] Discharge Diagnosis: New onset type 2 diabetes mellitus. Discharge Diagnosis: Encounter for diabetes education Discharge Disposition: 01-Home or Self Care Attending Physician: Nathaly Douglas APRN Admitting Physician: Nathaly Douglas APRN Vital Signs Most recent to oldest [Reference Range]: 1 Peripheral Pulse Rate [60-100 bpm] 52 bpm *LOW* (08/24/16 3:42 PM) Respiratory Rate [14-20 br/min] 16 br/min (08/24/16 3:42 PM) Blood Pressure [90-140/60-90 mmHg] 148/78 mmHg *HI* (08/24/16 3:42 PM) Problem List Condition Effective Dates Status Health Status Informant Actinic keratosis(Confirmed) Active Adhesive capsulitis of left Active shoulder(Confirmed) Xerosis of skin(Confirmed) Active Bloating(Confirmed) Resolved Cutaneous horn(Confirmed) Active Dyspepsia(Confirmed) Active Head trauma(Confirmed) Active Skin cancer-HX OF SCC(Confirmed) Active Encounter for well adult exam with Active abnormal findings(Confirmed) Prostate cancer screening(Confirmed) Active Solar degeneration(Confirmed) Active New onset type 2 diabetes Active mellitus.(Confirmed) Allergies, Adverse Reactions, Alerts No Known Medication Allergies Medications HumaLOG KwikPen 100 units/mL subcutaneous solution 14 units, SubCutaneous, TIDAC, one month supply, # 3 mL, 0 Refill(s), Pharmacy: [id number], 14 units SubCutaneous TIDAC,Instr:one month supply Start Date: 08/24/16 Status: Orderedibuprofen 200 mg oral capsule 400 mg 2 caps, Oral, q4hr, as needed for pain, 0 Refill(s) Start Date: 11/29/14 Status: Orderedsimvastatin 20 mg oral tablet 20 mg 1 tabs, Oral, Bedtime (once a day), # 30 tabs, 0 Refill(s), Pharmacy: [id number], 1 tabs Oral Bedtime (once a day) Start Date: 08/24/16 Status: OrderedTresiba FlexTouch 200 units/mL subcutaneous solution 10 units, SubCutaneous, Daily, one month supply, # 3 mL, 0 Refill(s), Pharmacy: [id number], 10 units SubCutaneous Daily,Instr:one month supply Start Date: 08/24/16 Status: Ordered Results No data available for this section Immunizations Given and Recorded Vaccine Date Status Refusal Reason tetanus/diphth/pertuss (Tdap) adult/adol 11/25/11 Recorded Procedures Procedure Date Related Diagnosis Body Site Colonoscopy 2010 Tonsillectomy Social History Social History Type Response Smoking Status Never smoker Assessment and Plan Extracted from: Title: Office Visit Note-[facility] Author: Nathaly Douglas APRN Date: Assessment/Plan 1.New onset type 2 diabetes mellitus. Decrease Tresiba to 10 units before bed. [id number] unitsbefore each meal.Supplies for blood sugar checkordered. Patient is to follow-up in the 1 months for recheck. 2.Encounter for diabetes education 1. Insulin titration method. Tresiba Set fasting blood sugar goat: 90 to 130. Patient is to increase theinsulin by increasing by1 uniteveryday if fasting sugar greater than 130 anddecreased by1 units if fasting blood sugar is less than 90.Patient is to haveno adjustment if blood sugar is between 90 to 130. Patient verbalized understanding. I spent more than 30 minutesdiscussingimportance of regularprompt blood sugar monitoring and why is that. Diagram demonstrated to help patient understand the concept.Insulin self titrati onmethodis discussedin great details. Knowledge reinforcement for insulin administration. Diet and exercise are discussed again Humalog Set fastingblood sugar goat: 90-130 Patient is to increase theinsulin by increasing by1 uniteveryday if fasting sugar greater than 130 and decreased by1 units if fasting blood sugar is less than 90.Patient is to haveno adjustment if blood sugar is between 90 to 130. Patient verbalized understanding 2. Recommend 1800 to 2000calories diet. Advised plate method (1/4 lean meat, 1/4 complex carbohydrates and 1/2 vegetable and fruits). Avoid the sweets , dessert, and decrease high fat foods. Bad car b vs good carb discussed. Strict no carb diet is discouraged. 3.Patient is instructed to exercise 30 minutes to 60 minutes a day for at least 5 days a week. 4. Diabetic care checklists, including routinecheckup for blood pressure, cholesterol,eye, feet, knees, andkidney, as well as smokes cessation and immunizationsreviewed with patient. Provider [id number] time was60 minutes with > 50% devoted to counseling or co-ordination of care and education for conditions described above.
--- OUTSIDE RECORDS SUMMARY | 2017-05-01 14:22 | External Medical Summary | Referral Summary ---
:1960 Author Organization [facility] Address [address] [place] [address] Care Team Providers Name Role Phone Prasanth Tenorio Primary Care Physician Encounter [facility] [id number] Date(s): 08/21/16 - 08/21/16 [facility] [address] [place] [address]- us Discharge Diagnosis: New onset type 2 diabetes mellitus. Discharge Disposition: 01-Home or Self Care Attending Physician: Prasanth Tenorio MD Admitting Physician: Prasanth Tenorio MD Vital Signs Most recent to oldest [Reference Range]: 1 Peripheral Pulse Rate [60-100 bpm] 63 bpm (08/21/16 8:08 AM) Blood Pressure [90-140/60-90 mmHg] 128/84 mmHg (08/21/16 8:08 AM) Problem List Condition Effective Dates Status Health [...] hands, # 40 g, 1 Refill(s), Pharmacy: [facility] [id number] Start Date: 08/28/15 Status: Orderedibuprofen 200 mg oral capsule 400 mg 2 caps, Oral, q4hr, as needed for pain, 0 Refill(s) Start Date: 11/29/14 Status: OrderedMucinex mg, Oral, q12hr, 0 Refill(s) Start Date: 01/02/15 Status: Orderedpolymyxin B-trimethoprim 10,000 units-1 mg/mL ophthalmic solution See Instructions, 1 drop the affected eye q3hr to 6 hours, # 5 mL, 0 Refill(s), Pharmacy: [facility] [id number] Start Date: 01/02/15 Status: Ordered Results Hematology Most recent to oldest [Reference Range]: 1 WBC [4.8-10.8 10*3/uL] 5.6 10*3/uL (08/21/16 10:13 AM) RBC [4.60-6.20] 5.66 (08/21/16 10:13 AM) Hgb [14.0-18.0 gm/dL] 16.4 gm/dL (08/21/16 10:13 AM) Hct [42.0-52.0 %] 47.6 % (08/21/16 10:13 AM) MCV [82.0-99.0 fL] 84.1 fL (08/21/16 10:13 AM) MCH [27.0-32.0 pg] 29.0 pg (08/21/16 10:13 AM) MCHC [32.0-36.0 gm/dL] 34.5 gm/dL (08/21/16 10:13 AM) RDW [11.5-14.5 %] 12.5 % (08/21/16 10:13 AM) Platelet [150-400 10*3/uL] 194 10*3/uL (08/21/16 10:13 AM) MPV [8.8-14.8 fL] 11.9 fL (08/21/16 10:13 AM) Immature Granulocytes [0.0-1.0 %] 0.2 % (08/21/16 10:13 AM) Neutrophils [51-75 %] 66 % (08/21/16 10:13 AM) Lymphocytes [20-46 %] 25 % (08/21/16 10:13 AM) Monocytes [4-11 %] 8 % (08/21/16 10:13 AM) Eosinophils [0-4 %] 1 % (08/21/16 10:13 AM) Basophils [0-2 %] 0 % (08/21/16: AM) Neutro Absolute [1.90-7.00] 3.65 (08/21/16:13 AM) Lymph Absolute [0.80-3.30] 1.37 (08/21/16:13 AM) [place] Absolute [0.30-1.00] 0.46 (08/21/16: AM) Eos Absolute [0.00-0.50] 0.05 (08/21/16:13 AM) Baso Absolute [0.00-0.20] 0.02 (08/21/16: AM) Chemistry Most recent to oldest [Reference Range]: 1 Sodium Lvl [135-144 mEq/L] 140 mEq/L (08/21/16: AM) Potassium Lvl [3.5-5.2 mEq/L] 4.5 mEq/L (08/21/16: AM) Chloride [99-111 mEq/L] 104 mEq/L (08/21/16:13 AM) CO2 [23-31 mEq/L] 28 mEq/L (08/21/16:13 AM) AGAP [3-20] 8 (08/21/16: AM) BUN [8-26 mg/dL] 17 mg/dL (08/21/16:13 AM) Glucose Lvl [70-99 mg/dL] 321 mg/dL *HI* (08/21/16:13 AM) Creatinine Lvl [0.72-1.25 mg/dL] 1.13 mg/dL (08/21/16:13 AM) eGFR [>60 mL/min] >60 mL/min 1 (08/21/16:13 AM) Calcium Lvl [8.4-10.2 mg/dL] 9.0 mg/dL 2 (08/21/16:13 AM) Albumin Lvl [3.5-5.0 gm/dL] 4.1 gm/dL (08/21/16 10:13 AM) Total Protein [6.1-7.7 gm/dL] 7.0 gm/dL (2/24/17 10:13 AM) Globulin [1.8-4.0 gm/dL] 2.9 gm/dL (08/21/16 10:13 AM) ALT [0-55 U/L] 24 U/L (08/21/16 10:13 AM) AST [5-34 U/L] 21 U/L (08/21/16 10:13 AM) Alk Phos [40-150 U/L] 148 U/L (08/21/16 10:13 AM) Bili Total [0.2-1.2 mg/dL] 0.9 mg/dL (08/21/16 10:13 AM) Glucose Level POC 324 mg/dL (08/21/16 8:45 AM) TSH [0.35-4.94] 1.61 (08/21/16 10:13 AM) Hgb A1c [4.1-5.6 %] 16.9 % *HI* (08/21/16 10:13 AM) eAvg Glucose 438.3 mg/dL (08/21/16 10:13 AM) 1Result Comment: Multiply eGFR results by 1.21 for race.2Result Comment: Please note reference range change effective 2016.Urinalysis Most recent to oldest [Reference Range]: 1 UA Color Yellow (08/21/16 10:13 AM) UA Appear Clear (08/21/16 10:13 AM) UA pH [5.0-8.0] 5.0 (08/21/16 10:13 AM) UA Leuk Est [Negative] Negative (08/21/16 10:13 AM) UA Nitrite [Negative] Negative (08/21/16 10:13 AM) UA Protein [Negative] Negative (08/21/16 10:13 AM) UA Glucose [Negative] Pos 3+ *ABN* (08/21/16 10:13 AM) UA Ketones [Negative] Pos 2+ *ABN* (08/21/16 10:13 AM) UA Urobilinogen [<1.0 mg/dL] 0.2 mg/dL (08/21/16 10:13 AM) UA Bili [Negative] Negative (08/21/16 10:13 AM) UA Blood [Negative] Negative (08/21/16 10:13 AM) UA Spec Grav [1.003-1.030] 1.040 *HI* (08/21/16 10:13 AM) Type Clean Catch (08/21/16 10:13 AM) Immunizations Given and Recorded Vaccine Date Status Refusal Reason tetanus/diphth/pertuss (Tdap) adult/adol 11/25/11 Recorded Procedures Procedure Date Related Diagnosis Body Site Colonoscopy 2010 Tonsillectomy Social History Social History Type Response Smoking Status Never smoker Assessment and Plan Extracted from: Title: New diabetes 36137 Author: Prasanth Tenorio MD Date: 08/21/16 Assessment/Plan 1.New onset type 2 diabetes mellitus.,Diabetes This most likely accounts for his symptoms. It is uncontrolled and symptomatic. At this stage, hewill not improvequicklywithout insulin. He probably his diabetes mellitus type II but he may be type I for this to occur. He does not appear to be acidotic but will evaluate further. I do believe this accounts for the weight loss and many other things. Rule out othermetabolic facto rs andconsider evaluation for end organdamage. Ordered: Albumin/Creatinine Ratio, Urine Hemoglobin A1c Urinalysis with Culture if Indicated 2.Weight loss Due to the uncontrolled diabetes. I don't see evidence of hyperthyroidism ormalabsorption to account for this. Ordered: CBC w/ Differential Comprehensive Metabolic Panel TSH 3rd Generation Plan: He is to start on insulin today. I will Will start with Tresiba 20 units daily and Humalog 15 units with meals. These pens were given to him. I will also have him start checkingblood sugars da dipti fasting and 2 hours after meals. I instructed him to use theHumalog insulin with the first bite of eating. He is to return in 3 days. I will also check a CBC, chem, TSH, hemoglobin A1c, UA, microalbumin/ creatinine ratio the urine. Further therapy pending the results of the insulin from above. Drake Bentley LPN did instruct him on thebeginning of insulin and also the use of home glucose monitoring. He will see Estella 3 days for further diabetic instruction and titration. This was a ra ther complicated visit and I did spend40 minutes with him going over some of this as well as the nurse visit. Extracted from: Title: Ambulatory Patient Education Author: Prasanth Tenorio MD Date: 2/24 /17 Health and Wellness Diabetes and Standards of Medical Care Diabetes is complicated. You may find that your diabetes team includes a dietitian, nurse, consumer educator, eye doctor, and more. To help everyone know what is going on and to help you get the care yo u deserve, the following schedule of care was developed to help keep you on track. Below are the tests, exams, vaccines, medicines, education, and plans you will need. HbA1c test This test shows how well you have controlled your glucose over the past 23 months. It is used to see if your diabetes management plan needs to be adjusted. It is performed at least 2 times a year if you are meeting treatment goals. It is performed 4 times a year if therapy has changed or if you are not meeting treatment goals. Blood pressure test This test is performed at every routine medical visit. The goal is less than 140/90 mm Hg for most people, but 130/80 mm Hg in some cases. Ask your health care provider about your goal. Dental exam Follow up with the dentist regularly. Eye exam If you are diagnosed with type 1 diabetes as a child, get an exam upon reaching the age of 10 years or older and having had diabetes for 35 years. Yearly eye exams are recommended after that initial eye exam. If you are diagnosed with type 1 diabetes as an adult, get an exam within 5 years of diagnosis and then yearly. If you are diagnosed with type 2 diabetes, get an exam as soon as possible after the diagnosis and then yearly. Foot care exam Visual foot exams are performed at every routine medical visit. The exams check for cuts, injuries, or other problems with the feet. You should have a complete foot exam performed every year. This exam includes an inspection of the structure and skin of your feet, a check of the pulses in your feet, and a check of the sensation in your feet. Type 1 diabetes: The first exam is performed 5 years after diagnosis. Type 2 diabetes: The first exam is performed at the time of diagnosis. Check your feet nightly for cuts, injuries, or other problems with your feet. Tell your health care provider if anything is not healing. Kidney function test (urine microalbumin) This test is performed once a year. Type 1 diabetes: The first test is performed 5 years after diagnosis. Type 2 diabetes: The first test is performed at the time of diagnosis. A serum creatinine and estimated glomerular filtration rate (eGFR) test is done once a year to assess the level of chronic kidney disease (CKD), if present. Lipid profile (cholesterol, HDL, LDL, triglycerides) Performed every 5 years for most people. The goal for LDL is less than 100 mg/dL. If you are at high risk, the goal is less than 70 mg/dL. The goal for HDL is 40 mg/dL50 mg/dL for men and 50 mg/dL60 mg/dL for women. An HDL cholesterol of 60 mg/dL or higher gives some protection against heart disease. The goal for triglycerides is less than 150 mg/dL. Immunizations The flu (influenza) vaccine is recommended yearly for every person 6 months of age or older who has diabetes. The pneumonia (pneumococcal) vaccine is recommended for every person 2 years of age or older who has diabetes. Adults 65 years of age or older may receive the pneumonia vaccine as a series of two separate shots. The hepatitis B vaccine is recommended for adults shortly after they have been diagnosed with diabetes. The Tdap (tetanus, diphtheria, and pertussis) vaccine should be given: According to normal childhood vaccination schedules, for children. Every 10 years, for adults who have diabetes. Diabetes self-management education Education is recommended at diagnosis and ongoing as needed. Treatment plan Your treatment plan is reviewed at every medical visit. This information is not intended to replace advice given to you by your health care provider. Make sure you discuss any questions you have with your health care provider. Document Released: 04/11/2010 Document Revised: 07/05/2015 Document Reviewed: 11/14/2013 [employer] Interactive Patient Education 2016 [employer]. Nutrition Insulin Treatment for Diabetes Diabetes is a disease that does not go away (chronic). It occurs when the body does not properly use the sugar (glucose) that is released from food after it is digested. Glucose levels are controlled by a hormone called insulin, which is made by your pancreas. Depending on the type of diabetes you have, either of the following will apply: The pancreas does not make any insulin (type 1 diabetes). The pancreas makes too little insulin, and the body cannot respond normally to the insulin that is made (type 2 diabetes). Without insulin, can occur. However, with the addition of insulin, blood sugar monitoring, and treatment, someone with diabetes can live a full and productive life. This document will discuss the role of insulin in your treatment and provide information about its use. HOW IS INSULIN GIVEN? Insulin is a medicine that can only be given by injection. Taking it by mouth makes it inactive because of the acid in your stomach. Insulin is injected under the skin by a syringe and needle, an insuli n pen, a pump, or a jet injector. Your dose will be determined by your health care provider based on your individual needs. You will also be given guidance on which method of giving insulin is right for you. Remember that if you give insulin with a needle and syringe, you must do so using only a special insulin syringe made for this purpose. WHERE ON THE BODY SHOULD INSULIN BE INJECTED? Insulin is injected into the fatty layer of tissue just under your skin. Good places to inject insulin include the upper arm, the front and outer area of the thigh, the hips, and the abdomen. Giving you r insulin in the abdomen is preferred because this provides the most rapid and consistent absorption. Avoid the area 2 inches (5 cm) around the navel and avoid injecting into areas on your body with sca r tissue. In addition, it is important to rotate your injection sites with every shot to prevent irritation and improve absorption. WHAT ARE THE DIFFERENT TYPES OF INSULIN? If you have type 1 diabetes, you must take insulin to stay alive. Your body does not produce it. If you have type 2 diabetes, you might require insulin in addition to, or instead of, other medicines. In either case, proper use of insulin is critical to control your diabetes. There are a number of different types of insulin. Usually, you will give yourself injections, though others can be trained to give them to you. Some people have an insulin pump that delivers insulin con tinuously through a tube (cannula) that is placed under the skin. Using insulin requires that you check your blood sugar several times a day. The exact number of times and time of day to check will vary depending on your type of diabetes, your type of insulin, and nupur atment goals. Your health care provider will direct you. Generally, different insulins have different properties. The following is a general guide. Specifics will vary by product, and new products are introduced periodically. Rapid-acting insulin starts working quickly (in as little as 5 minutes) and wears off in 4 to 6 hours (sometimes longer). This type of insulin works well when taken just before a meal to bring your blood sugar quickly back to normal. Short-acting insulin starts working in about 30 minutes and can last 6 to 10 hours. This type of insulin should be taken about 30 minutes before you start eating a meal. Intermediate-acting insulin starts working in 1-2 hours and wears off after about 10 to 18 hours. This insulin will lower your blood sugar for a longer period of time, but it will not be as effec tive in lowering your blood sugar right after a meal. Long-acting insulin mimics the small amount of insulin that your pancreas usually produces throughout the day. You need to have some insulin present at all times. It is crucial to the metabolism of brain cells and other cells. Long-acting insulin is meant to be used either once or twice a day. It is usually used in combination with other types of insulin, or in combination with other diabetes medicines. Discuss the type of insulin you are taking with your health care provider or pharmacist. You will then be aware of when the insulin can be expected to peak and when it will wear off. This is important t o know so you can plan for meal times and periods of exercise. Your health care provider will usually have a strategy in mind when treating you with insulin. This will vary with your type of diabetes, your diabetes treatment goals, and your health history. It is im portant that you understand this strategy so you can be an active partner in treating your diabetes. Here are some terms you might hear: Basal insulin. This refers to the small amount of insulin that needs to be present in your blood at all times. Sometimes oral medicines will be enough. For other people, and especially for people with type 1 diabetes, insulin is needed. Usually, intermediate-acting or long- acting insulin is used once or twice a day to accomplish this. Prandial (meal-related) insulin. Your blood sugar will rise rapidly after a meal. Rapid-acting or short-acting insulin can be used right before the meal to bring your blood sugar back to normal q uickly. You might be instructed to adjust the amount of insulin depending on how much carbohydrate (starch) is in your meal. Corrective insulin. You might be instructed to check your blood sugar at certain times of the day. You then might use a small amount of rapid-acting or short-acting insulin to bring the blood sugar down to normal if it is elevated. Tight control (also called intensive therapy). Tight control means keeping your blood sugar as close to your target as possible and keeping it from going too high after meals. People with tight c ontrol of their diabetes are shown to have fewer long-term problems from their diabetes. Glycohemoglobin (also called glyco, glycosylated hemoglobin, hemoglobin A1c, or A1c) level. This measures how well your blood sugar has been controlled during the past 1 to 3 months. It helps you r health care provider see how effective your treatment is and decide if any changes are needed. Your health care provider will discuss your target glycohemoglobin level with you. Insulin treatment requires your careful attention. While you are being treated with insulin, you should check your blood glucose at least two times each day. Treatment plans will be different for differ ent people. Some people do well with a simple program. Others require more complicated programs, with multiple insulin injections daily. You will work with your health care provider to develop the best program for you. Regardless of your insulin treatment plan, you must also do your best on weight control, diet and food choices, exercise, blood pressure control, cholesterol control, and stress levels. WHAT ARE THE SIDE EFFECTS OF INSULIN? Although insulin treatment is important, it does have some side effects, such as: Insulin can cause your blood sugar to go too low (hypoglycemia). Weight gain can occur. Improper injection technique can cause hypoglycemia, blood sugar to go too high (hyperglycemia), skin injury or irritation, or other problems. You must learn to inject insulin properly. This information is not intended to replace advice given to you by your health care provider. Make sure you discuss any questions you have with your health care provider. Document Released: 09/10/2009 Document Revised: 07/05/2015 Document Reviewed: 11/26/2013 [employer] Interactive Patient Education 2016 [employer] Preventive Medicine Blood Glucose Monitoring, Adult Monitoring your blood glucose (also know as blood sugar) helps you to manage your diabetes. It also helps you and your health care provider monitor your diabetes and determine how well your treatment plan is working. WHY SHOULD YOU MONITOR YOUR BLOOD GLUCOSE? It can help you understand how food, exercise, and medicine affect your blood glucose. It allows you to know what your blood glucose is at any given moment. You can quickly tell if you are having low blood glucose (hypoglycemia) or high blood glucose (hyperglycemia). It can help you and your health care provider know how to adjust your medicines. It can help you understand how to manage an illness or adjust medicine for exercise. WHEN SHOULD YOU TEST? Your health care provider will help you decide how often you should check your blood glucose. This may depend on the type of diabetes you have, your diabetes control, or the types of medicines you are t aking. Be sure to write down all of your blood glucose readings so that this information can be reviewed with your health care provider. See below for examples of testing times that your health care provider may suggest. Type 1 Diabetes Test at least 2 times per day if your diabetes is well controlled, if you are using an insulin pump, or if you perform multiple daily injections. If your diabetes is not well controlled or if you are sick, you may need to test more often. It is a good idea to also test: Before every insulin injection. Before and after exercise. Between meals and 2 hours after a meal. Occasionally between 2:00 a.m. and 3:00 a.m. Type 2 Diabetes If you are taking insulin, test at least 2 times per day. However, it is best to test before every insulin injection. If you take medicines by mouth (orally), test 2 times a day. If you are on a controlled diet, test once a day. If your diabetes is not well controlled or if you are sick, you may need to monitor more often. HOW TO MONITOR YOUR BLOOD GLUCOSE Supplies Needed Blood glucose meter. Test strips for your meter. Each meter has its own strips. You must use the strips that go with your own meter. A pricking needle (lancet). A device that holds the lancet (lancing device). A journal or log book to write down your results. Procedure Wash your hands with soap and water. Alcohol is not preferred. Prick the side of your finger (not the tip) with the lancet. Gently milk the finger until a small drop of blood appears. Follow the instructions that come with your meter for inserting the test strip, applying blood to the strip, and using your blood glucose meter. Other Areas to Get Blood for Testing Some meters allow you to use other areas of your body (other than your finger) to test your blood. These areas are called alternative sites. The most common alternative sites are: The forearm. The thigh. The back area of the lower leg. The palm of the hand. The blood flow in these areas is slower. Therefore, the blood glucose values you get may be delayed, and the numbers are different from what you would get from your fingers. Do not use alternative sites if you think you are having hypoglycemia. Your reading will not be accurate. Always use a finger if you are having hypoglycemia. Also, if you cannot feel your lows (hypoglycemia unawareness), always use your fingers for your blood glucose checks. ADDITIONAL TIPS FOR GLUCOSE MONITORING Do not reuse lancets. Always carry your supplies with you. All blood glucose meters have a 24-hour "hotline" number to call if you have questions or need help. Adjust (calibrate) your blood glucose meter with a control solution after finishing a few boxes of strips. BLOOD GLUCOSE RECORD KEEPING It is a good idea to keep a daily record or log of your blood glucose readings. Most glucose meters, if not all, keep your glucose records stored in the meter. Some meters come with the ability to downl oad your records to your home computer. Keeping a record of your blood glucose readings is especially helpful if you are wanting to look for patterns. Make notes to go along with the blood glucose readi ngs because you might forget what happened at that exact time. Keeping good records helps you and your health care provider to work together to achieve good diabetes management. This information is not intended to replace advice given to you by your health care provider. Make sure you discuss any questions you have with your health care provider. Document Released: 06/16/2004 Document Revised: 07/05/2015 Document Reviewed: 11/06/2013 [employer] Interactive Patient Education 2016 [employer] No follow up information was provided.
--- OUTSIDE RECORDS SUMMARY | 2017-05-01 14:22 | External Medical Summary | Referral Summary ---
:1960 Author Organization [facility] Address [address] [place] [address] Care Team Providers Name Role Phone Prasanth Tenorio Primary Care Physician Encounter VC Date(s): 01/02/15 - 01/02/15 [facility] [address] [place], [place] [address] Discharge Diagnosis: Acute URI Discharge Diagnosis: Conjunctivitis Discharge Disposition: 01-Home or Self Care Attending Physician: Nathaly Douglas APRN Admitting Physician: Nathaly Douglas APRN Vital Signs Most recent to oldest [Reference Range]: 1 Peripheral Pulse Rate [60-100 bpm] 72 bpm (01/02/15 11:31 AM) Blood Pressure [90-140/60-90 mmHg] 136/80 mmHg (01/02/15 11:31 AM) Problem List Condition Effective Dates Status [...] hours, # 5 mL, 0 Refill(s), Pharmacy: [id number] Start Date: 01/02/15 Status: Ordered Results No data available for this section Immunizations Vaccine Date Refusal Reason tetanus/diphth/pertuss (Tdap) adult/adol 11/25/11 Procedures Procedure Date Related Diagnosis Body Site Colonoscopy 2013 Tonsillectomy Social History Social History Type Response Smoking Status Never smoker Assessment and Plan Extracted from: Title: Office Visit Note-uri Author: Nathaly Douglas APRN Date: 01/02/15 Assessment/Plan 1.Acute URI Impression: Clinical symptoms and physical exam is consistent with upper respiratory infection. Pneumonia and bronchitis are less likely. Plan: Patient is recommended to rest, having plenty of fluids, and symptoms control. Tylenol or Motrin for fever/discomfort and Robitussin for cough. Cold medication list for symptom control given. 2.Conjunctivitis Impression: Conjunctivitis may started out as a viral and and turned into bacterial infection. Plan: Patient is to use Polymyxin B/Trimethoprim 1 to 2 drops 4 hours as needed until the discharge is clear. Patient is to return to the office if symptom worsens or call if any questions and concerns. Patient verbalizes understanding. Orders: polymyxin B-trimethoprim ophthalmic, See Instructions, 1 drop the affected eye q3hr to 6 hours, # 5 mL, 0 Refill(s), Pharmacy: [facility] [id number] Future Scheduled TestsReferralReturn to Clinic 01/02/15 9:52 PMReturn to Clinic 10:46 PM Referrals to Other Providers Referred by: Nathaly Douglas APRN Referred by: Nathaly Douglas APRN
--- OUTSIDE RECORDS SUMMARY | 2017-05-01 14:22 | External Medical Summary | Referral Summary ---
:1960 Author Organization [facility] Address [address] [place] [address] Care Team Providers Name Role Phone Prasanth Tenorio Primary Care Physician Encounter [facility] Date(s): 12/10/14 - 12/10/14 [facility] [address] [place] [address] [place] Discharge Diagnosis: Prostate cancer [...] days, # 20 tabs, 0 Refill(s), Pharmacy: [facility] [id number] Start Date: 04/28/15 Stop Date: 05/08/15 Status: Orderedibuprofen 200 mg oral capsule 400 mg 2 caps, Oral, q4hr, as needed for pain, 0 Refill(s) Start Date: 11/29/14 Status: OrderedMucinex mg, Oral, q12hr, 0 Refill(s) Start Date: 01/02/15 Status: Orderedpolymyxin B-trimethoprim 10,000 units-1 mg/mL ophthalmic solution See Instructions, 1 drop the affected eye q3hr to 6 hours, # 5 mL, 0 Refill(s), Pharmacy: [facility] [id number] Start Date: 01/02/15 Status: Ordered Results No data available for this section Immunizations Vaccine Date Refusal Reason tetanus/diphth/pertuss (Tdap) adult/adol 11/25/11 Procedures Procedure Date Related Diagnosis Body Site Colonoscopy 2013 Tonsillectomy Social History Social History Type Response Smoking Status Never smoker Assessment and Plan Extracted from: Title: Wellness 40058 Author: Prasanth Tenorio MD Date: 12/10/14 Assessment/Plan [...] activities. I did fill outhis form for [employer]. Continue everything else as he is [...]
--- OUTSIDE RECORDS SUMMARY | 2017-05-01 14:22 | External Medical Summary | Referral Summary ---
:1960 Author Organization [facility] Address [address] [place] [address] Care Team Providers Name Role Phone Prasanth Tenorio Primary Care Physician Encounter [facility] Date(s): 12/10/14 - 12/10/14 [facility] [address] [place] [address] [place] Discharge Diagnosis: Prostate cancer [...] days, # 20 tabs, 0 Refill(s), Pharmacy: [facility] [id number] Start Date: 04/28/15 Stop Date: 05/08/15 Status: Orderedibuprofen 200 mg oral capsule 400 mg 2 caps, Oral, q4hr, as needed for pain, 0 Refill(s) Start Date: 11/29/14 Status: OrderedMucinex mg, Oral, q12hr, 0 Refill(s) Start Date: 01/02/15 Status: Orderedpolymyxin B-trimethoprim 10,000 units-1 mg/mL ophthalmic solution See Instructions, 1 drop the affected eye q3hr to 6 hours, # 5 mL, 0 Refill(s), Pharmacy: [facility] [id number] Start Date: 01/02/15 Status: Ordered Results No data available for this section Immunizations Vaccine Date Refusal Reason tetanus/diphth/pertuss (Tdap) adult/adol 11/25/11 Procedures Procedure Date Related Diagnosis Body Site Colonoscopy 2013 Tonsillectomy Social History Social History Type Response Smoking Status Never smoker Assessment and Plan Extracted from: Title: Wellness 33800 Author: Prasanth Tenorio MD Date: 12/10/14 Assessment/Plan [...] activities. I did fill outhis form for [employer] camp. Continue everything else as he is [...]
--- OUTSIDE RECORDS SUMMARY | 2017-05-01 14:22 | External Medical Summary | Referral Summary ---
:1960 Author Organization [facility] Address [address] [place] [address] Care Team Providers Name Role Phone Prasanth Tenorio Primary Care Physician Encounter [facility] Date(s): 11/29/14 - 11/29/14 [facility] [address] [place] [address]- [place] Discharge Diagnosis: Adhesive capsulitis of left shoulder Discharge Disposition: 01-Home or Self Care Attending Physician: Farhat Ojeda MD Admitting Physician: Farhat Ojeda MD Referring Physician: Prasanth Tenorio MD Vital [...] hours, # 5 mL, 0 Refill(s), Pharmacy: [facility] [id number] Start Date: 01/02/15 Status: Ordered Results No data available for this section Immunizations Vaccine Date Refusal Reason tetanus/diphth/pertuss (Tdap) adult/adol 11/25/11 Procedures Procedure Date Related Diagnosis Body Site Arthrocentesis, aspiration and/or injection, major 11/29/14 joint or bursa (eg, shoulder, hip, knee, subacromial bursa); without ultrasound guidance Colonoscopy 2012 Tonsillectomy Social History Social History Type Response Smoking Status Never smoker Assessment and Plan Extracted from: Title: Office Visit Note Author: Farhat Ojeda MD Date: 11/29/14 Assessment/Plan Adhesive capsulitis of left shoulder He has adhesive capsulitis his left shoulder. I gave him a pamphlet on adhesive capsulitis. I talked about treatment. Were going to do an injection and the rapy. He has been to [facility] in the past and he would like to go back there. I told him this will take several months ago his motion back but the injection should help out with a lot of the discomfort and making up sleep better. If he's not making much progress in a month and I need to see him back. Procedure note: Left shoulder sterilely prepped with Betadine. Injected into the left shoulder glenohumeral joint with 80 mg Kenalog and 8 mL one percent lidocaine. He is very tender when I got down to the capsule. Ordered: triamcinolone, 2 mL, IntraARTICULAR , Once, First Dose: 11/29/14 11:00:00 CDT , Stop Date: 11/29/14 11:00:00 CDT, [facility] 4090-4053-05 Arthro/Asp Major Joint Inj (Shoulder, Hip, Knee) Office Visit Level 3 New 87945 Future Scheduled TestsReferralReturn to Clinic 01/02/15 9:52 PMReturn to Clinic 10:46 PM Referrals to Other Providers Referred by: Nathaly Douglas APRN Referred by: Nathaly Douglas APRN
--- OUTSIDE RECORDS SUMMARY | 2017-05-01 14:24 | External Medical Summary | Referral Summary ---
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 Discharge Diagnosis: Nasal septal deformity Discharge Disposition: 01-Home or Self Care Attending Physician: Escobar Graf MD Admitting Physician: Escobar Graf MD Referring Physician: Armando Beverly Vital Signs Most recent to oldest [Reference Range]: 1 Temperature Tympanic [36.6-38.1 degC] 37.2 degC (11/23/14 12:57 PM) Problem List Condition Effective Dates Status [...] hours, # 5 mL, 0 Refill(s), Pharmacy: [facility] [id number] Start Date: 01/02/15 Status: Ordered Results No data available for this section Immunizations Vaccine Date Refusal Reason tetanus/diphth/pertuss (Tdap) adult/adol 11/25/11 Procedures Procedure Date Related Diagnosis Body Site Nasal endoscopy, diagnostic, unilateral or 11/23/14 bilateral (separate procedure) Nasal endoscopy, diagnostic, unilateral or 11/23/14 bilateral (separate procedure) Nasal endoscopy, diagnostic, unilateral or 11/23/14 bilateral (separate procedure) Colonoscopy 2013 Tonsillectomy Social History Social History Type Response Smoking Status Never smoker Assessment and Plan Extracted from: Title: Office Visit Note Author: Escobar Graf MD Date: 11/23/14 Assessment/Plan 1.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 Arrangements have been made. We went over t he surgical procedure along with follow-up care. Due to pathology, patient is concerned and wishes to have this done as soon as possible. Ordered: Nasal Endoscopy, Diagnostic, Unilateral Or Bilateral (Separate Procedure) 67451 Office New Consult Level 4 19578 2.Nasal septal deformity Patient would benefit from nasal septoplasty. He would like to consider having this done after he has had his skin neoplasm resection. Ordered: Nasal Endoscopy, Diagnostic, Unilateral Or Bilateral (Separate Procedure) 32090 Office New Consult Level 4 18241 Future Scheduled TestsReferralReturn to Clinic 01/02/15 9:52 PMReturn to Clinic 10:46 PM Referrals to Other Providers Referred by: Nathaly Douglas APRN Referred by: Nathaly Douglas APRN
--- OUTSIDE RECORDS SUMMARY | 2017-05-01 14:24 | External Medical Summary | Referral Summary ---
:1960 Author Organization [facility] Address [address] [place] [address] Care Team Providers Name Role Phone Prasanth Tenorio Primary Care Physician Encounter [facility] [id number] Date(s): 11/19/15 - 11/19/15 [facility] [address] [place] [address]- [place] Discharge Diagnosis: Encounter for well adult exam with abnormal findings Discharge Diagnosis: Dyspepsia Discharge Diagnosis: Colon cancer screening Discharge Diagnosis: Solar degeneration Discharge Diagnosis: Prostate cancer screening Discharge Disposition: 01-Home or Self Care Attending Physician: Prasanth Tenorio MD Admitting Physician: Prasanth Tenorio MD Vital Signs Most recent to oldest [Reference Range]: 1 Peripheral Pulse Rate [60-100 bpm] 58 bpm *LOW* (11/19/15 4:03 PM) Blood Pressure [90-140/60-90 mmHg] 142/88 mmHg *HI* (11/19/15 4:03 PM) Mean Arterial Pressure, Cuff 106 mmHg (11/19/15 4:03 PM) SpO2 99 % (11/19/15 4:03 PM) Problem List Condition Effective Dates Status [...] hands, # 40 g, 1 Refill(s), Pharmacy: [facility] [id number] Start Date: 08/28/15 Status: Orderedibuprofen 200 mg oral capsule 400 mg 2 caps, Oral, q4hr, as needed for pain, 0 Refill(s) Start Date: 11/29/14 Status: OrderedMucinex mg, Oral, q12hr, 0 Refill(s) Start Date: 01/02/15 Status: Orderedpolymyxin B-trimethoprim 10,000 units-1 mg/mL ophthalmic solution See Instructions, 1 drop the affected eye q3hr to 6 hours, # 5 mL, 0 Refill(s), Pharmacy: [facility] [id number] Start Date: 01/02/15 Status: Orderedtriamcinolone 0.1% topical ointment 1 sandee, Topical, BID, Apply to affected areas twice daily., X 90 days, # 60 g, 1 Refill(s), Pharmacy:[facility] [id number] Start Date: 09/17/15 Stop Date: 03/15/16 Status: Ordered Results Hematology Most recent to oldest [Reference Range]: 1 WBC [4.8-10.8 10*3/uL] 5.5 10*3/uL (11/19/15 5:05 PM) RBC [4.60-6.20] 5.02 (11/19/15 5:05 PM) Hgb [14.0-18.0 gm/dL] 14.9 gm/dL (11/19/15 5:05 PM) Hct [42.0-52.0 %] 42.6 % (11/19/15 5:05 PM) MCV [82.0-99.0 fL] 84.9 fL (11/19/15 5:05 PM) MCH [27.0-32.0 pg] 29.7 pg (11/19/15 5:05 PM) MCHC [32.0-36.0 gm/dL] 35.0 gm/dL (11/19/15 5:05 PM) RDW [11.5-14.5 %] 13.5 % (11/19/15 5:05 PM) Platelet [150-400 10*3/uL] 208 10*3/uL (11/19/15 5:05 PM) MPV [8.8-14.8 fL] 11.3 fL (11/19/15 5:05 PM) Immature Granulocytes [0.0-1.0 %] 0.2 % (11/19/15 5:05 PM) Neutrophils [51-75 %] 56 % (11/19/15 5:05 PM) Lymphocytes [20-46 %] 32 % (11/19/15 5:05 PM) Monocytes [4-11 %] 9 % (11/19/15 5:05 PM) Eosinophils [0-4 %] 3 % (11/19/15 5:05 PM) Basophils [0-2 %] 0 % (11/19/15 5:05 PM) Neutro Absolute [1.90-7.00 10*3] 3.08 10*3 (11/19/15 5:05 PM) Lymph Absolute [0.80-3.30 10*3] 1.75 10*3 (11/19/15 5:05 PM) [place] Absolute [0.30-1.00 10*3] 0.50 10*3 (11/19/15 5:05 PM) Eos Absolute [0.00-0.50 10*3] 0.16 10*3 (11/19/15 5:05 PM) Baso Absolute [0.00-0.20 10*3] 0.02 10*3 (11/19/15 5:05 PM) Chemistry Most recent to oldest [Reference Range]: 1 PSA (wihout Reflex Free) [0.0-3.5 ng/mL] 1.5 ng/mL 1 (11/19/15 5:05 PM) HDL [40-84 mg/dL] 28 mg/dL *LOW* (11/19/15 5:05 PM) LDL Direct [0-129 mg/dL] 121 mg/dL (11/19/15 5:05 PM) 1Result Comment: AUA PSA Best Practice Guidelines: Age-Adjusted PSA Values by Ethnic Group Age Range Asians - Caucasians Americans 40-49 0-2.0 0-2.0 0-2.5 50-59 0-3.0 0-4.0 0-3.5 60-69 0-4.0 0-4.5 0-4.5 70-79 0-5.0 0-5.5 0-6.5 Immunizations Vaccine Date Refusal Reason tetanus/diphth/pertuss (Tdap) adult/adol 11/25/11 Procedures Procedure Date Related Diagnosis Body Site Colonoscopy 2011 Tonsillectomy Social History Social History Type Response Smoking Status Never smoker Assessment and Plan Extracted from: Title: Wellness 25754 Author: Prasanth Tenorio MD Date: 11/19/15 Assessment/Plan 1.Encounter for well adult exam with abnormal findings Doing really quite well with no new serious problems. He does do good lifestyle management. 2.Dyspepsia Intermittent andlong-standing. Probably represents a component of IBS. 3.Prostate cancer screening No obvious cancer. Will continue monitor 4.Colon cancer screening No obvious cancer and will monitor. His next colonoscopy will be 2020. 5.Solar degeneration Followed and treatedby dermatology as well. Plan: I will check an LDL direct, HDLcholesterol,CBC, PSA. Further therapy pending the results. Activities as tolerated. He may participate in any activities as deemed necessary for[employer] p. I will see him back in anotheryear for comprehensive exam and evaluation. He may return if he has other problems prior to that. Future Scheduled TestsReferralReturn to Clinic 01/02/15 9:52 PM Referrals to Other Providers Referred by: Nathaly Douglas APRN
--- OUTSIDE RECORDS SUMMARY | 2017-05-01 14:24 | External Medical Summary | Referral Summary ---
:1960 Author Organization [facility] Address [address] [place] [address] Care Team Providers Name Role Phone Prasanth Tenorio Primary Care Physician Encounter [facility] Date(s): 12/10/14 - 12/10/14 [facility] [address] [place] [address]- [place] Discharge Diagnosis: Prostate cancer [...] days, # 20 tabs, 0 Refill(s), Pharmacy: [facility] [id number] Start Date: 04/28/15 Stop Date: 05/08/15 Status: Orderedibuprofen 200 mg oral capsule 400 mg 2 caps, Oral, q4hr, as needed for pain, 0 Refill(s) Start Date: 11/29/14 Status: OrderedMucinex mg, Oral, q12hr, 0 Refill(s) Start Date: 01/02/15 Status: Orderedpolymyxin B-trimethoprim 10,000 units-1 mg/mL ophthalmic solution See Instructions, 1 drop the affected eye q3hr to 6 hours, # 5 mL, 0 Refill(s), Pharmacy: [facility] [id number] Start Date: 01/02/15 Status: Ordered Results No data available for this section Immunizations Vaccine Date Refusal Reason tetanus/diphth/pertuss (Tdap) adult/adol 11/25/11 Procedures Procedure Date Related Diagnosis Body Site Colonoscopy 2013 Tonsillectomy Social History Social History Type Response Smoking Status Never smoker Assessment and Plan Extracted from: Title: Wellness 29041 Author: Prasanth Tenorio MD Date: 12/10/14 Assessment/Plan [...] activities. I did fill outhis form for [employer]. Continue everything else as he is [...]
--- OUTSIDE RECORDS SUMMARY | 2017-05-01 14:24 | External Medical Summary | Continuity of Care Document ---
:1960 Author Organization [facility] Allergies Active Description Code Type Severity Reaction Onset Reported/ Identified Relationship Clinical to Patient Status Yes No Known NKMA N/A N/A 12/04/2013 Medication Allergies Medications Problems Date Dx Attending Type Code Diagnosis Diagnosed By Coded 10/30/2015 Koby Delgadillo Final C44.319 Basal cell carcinoma R of skin of other parts of face 10/30/2015 Koby Delgadillo Final L57.0 Actinic keratosis R 11/19/2015 Jona, Final Z00.01 Encounter for Prasanth W general adult medical examination with abnormal findings 11/19/2015 Jona, Final R10.13 Epigastric pain Prasanth W 11/19/2015 Jona, Final Z12.11 Encounter for Prasanth W screening for malignant neoplasm of colon 11/19/2015 Jona, Final Z12.5 Encounter for Prasanth W screening for malignant neoplasm of prostate 11/19/2015 Jona, Final L57.8 Other skin changes Prasanth W due to chronic exposure to nonionizing radiation 05/04/2016 Koby Delgadillo Final L57.0 Actinic keratosis R 05/04/2016 Koby Delgadillo Final L82.1 Other seborrheic R keratosis 05/04/2016 Koby Delgadillo Final Z85.828 Personal history of R other malignant neoplasm of skin 08/21/2016 Jona, Final E11.9 Type 2 diabetes Prasanth W mellitus without complications 08/21/2016 Nathaly Douglas Final E11.9 Type 2 diabetes C mellitus without complications 08/21/2016 Nathaly Douglas Final Z71.89 Other specified C counseling 08/24/2016 Nathaly Douglas Final E11.9 Type 2 diabetes C mellitus without complications 08/24/2016 Nathaly Douglas Final Z71.89 Other specified C counseling 09/21/2016 Nathaly Douglas Final E11.9 Type 2 diabetes C mellitus without complications 09/21/2016 Nathaly Douglas Final Z00.00 Encounter for C general adult medical examination without abnormal findings 09/21/2016 Nathaly Douglas Final Z71.89 Other specified C counseling 09/21/2016 Nathaly Douglas Final Z12.5 Encounter for C screening for malignant neoplasm of prostate 10/16/2016 Nathaly Douglas Final B02.9 Zoster without C complications 10/16/2016 Nathaly Douglas Final E11.9 Type 2 diabetes C mellitus without complications 10/16/2016 Nathaly Douglas Final J10.1 Influenza due to C other identified influenza virus with other respiratory manifestations 11/02/2016 Koby Delgadillo Final L57.0 Actinic keratosis R 11/02/2016 Koby Delgadillo Final B02.9 Zoster without R complications 11/02/2016 Koby Delgadillo Final L82.1 Other seborrheic R keratosis 11/02/2016 Koby Delgadillo Final Z85.828 Personal history of R other malignant neoplasm of skin 11/19/2016 Jona, Final Z00.01 Encounter for Prasanth W general adult medical examination with abnormal findings 11/19/2016 Jona, Final E11.9 Type 2 diabetes Prasanth W mellitus without complications 11/19/2016 Jona, Final E78.00 Pure Prasanth W hypercholesterolemia , unspecified 11/19/2016 Jona, Final Z12.11 Encounter for Prasanth W screening for malignant neoplasm of colon 11/19/2016 Jona, Final Z12.5 Encounter for Prasanth W screening for malignant neoplasm of prostate 11/19/2016 Jona, Final 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 12/17/2016 Nathaly Douglas Final E11.9 Type 2 diabetes C mellitus without complications Procedures Code Description Performed By Performed On 10/30/2015 48115 Excision, malignant lesion including margins, face, ears, eyelids, nose, lips; excised diameter 1.1 to 2.0 cm 10/30/2015 12935 Repair, intermediate, wounds of face, ears, eyelids, nose, lips and/or mucous membranes; 2.6 cm to 5.0 cm 10/30/2015 29296 Destruction (eg, laser surgery, electrosurgery, cryosurgery, chemosurgery, surgical curettement), premalignant lesions (eg, actinic keratoses); first lesion Level 10/30/2015 35177 IV - Surgical pathology, gross and microscopic examination - spontaneous/missed Artery, biopsy Bone marrow, biopsy Bone exostosis Brain/meninges, other than for tumor resection Breast, 11/06/2015 29104 Postoperative follow-up visit, normally included in the surgical package, to indicate that an evaluation and management service was performed during a postoperative period for a reason(s) related to t 11/19/2015 19615 Collection of venous blood by venipuncture 11/19/2015 92498 Lipoprotein, direct measurement; high density cholesterol (HDL cholesterol).. 11/19/2015 36138 Lipoprotein, direct measurement; LDL cholesterol 11/19/2015 54685 Prostate specific antigen (PSA); total Blood 11/19/2015 42186 count; complete (CBC), automated (Hgb, Hct, RBC, WBC and platelet count) and automated differential WBC count 11/19/2015 65534 Periodic comprehensive preventive medicine reevaluation and management of an individual including an age and gender appropriate history, examination, counseling/anticipatory guidance/risk factor reduc 05/04/2016 96120 Destruction (eg, laser surgery, electrosurgery, cryosurgery, chemosurgery, surgical curettement), premalignant lesions (eg, actinic keratoses); first lesion 05/04/2016 31591 Destruction (eg, laser surgery, electrosurgery, cryosurgery, chemosurgery, surgical curettement), premalignant lesions (eg, actinic keratoses); second through 14 lesions, each (List separately in [place] 05/04/2016 96281 Office or other outpatient visit for the evaluation and management of an established patient, which requires at least 2 of these 3 [place] components: An expanded problem focused history; An expanded prob 08/21/2016 50631 General health panel This panel must include the following: Comprehensive metabolic panel (51789) Blood count, complete (CBC), automated and automated differential WBC count (35797 or 02788 and 57188) 08/21/2016 82642 Comprehensive metabolic panel This panel must include the following: Albumin (93336) Bilirubin, total (14187) Calcium, total (40551) Carbon dioxide (bicarbonate) (31900) Chloride (29650) Creatinine (8 08/21/2016 52950 Urinalysis, by dip stick or tablet reagent for bilirubin, glucose, hemoglobin, ketones, leukocytes, nitrite, pH, protein, specific gravity, urobilinogen, any number of these constituents; automated, w 08/21/2016 22973 Albumin; urine, microalbumin, quantitative 08/21/2016 22796 Creatinine; other source 08/21/2016 13317 Glucose; quantitative, blood (except reagent strip) 08/21/2016 15341 Hemoglobin; glycosylated (A1C) 08/21/2016 13635 Thyroid stimulating hormone (TSH) Blood 08/21/2016 61465 count; complete (CBC), automated (Hgb, Hct, RBC, WBC and platelet count) and automated differential WBC count 08/21/2016 Office or other outpatient visit for the evaluation and management of an established patient, which requires at least 2 of these 3 [place] components: A detailed history; A detailed examination; Medical d 08/21/2016 13078 Collection of venous blood by venipuncture 08/21/2016 05581 C-peptide Islet 08/21/2016 48395 cell antibody.. 08/21/2016 Office or other outpatient visit for the evaluation and management of an established patient, which requires at least 2 of these 3 [place] components: A comprehensive history; A comprehensive examination; 08/24/2016 Office or other outpatient visit for the evaluation and management of an established patient, which requires at least 2 of these 3 [place] components: A comprehensive history; A comprehensive examination; 09/21/2016 Office or other outpatient visit for the evaluation and management of an established patient, which requires at least 2 of these 3 [place]uil[place] components: A detailed history; A detailed examination; Medical d 10/16/2016 Office or other outpatient visit for the evaluation and management of an established patient, which requires at least 2 of these 3 [place]il[place] components: A detailed history; A detailed examination; Medical d 11/02/2016 50229 Destruction (eg, laser surgery, electrosurgery, cryosurgery, chemosurgery, surgical curettement), premalignant lesions (eg, actinic keratoses); first lesion 11/02/2016 70252 Destruction (eg, laser surgery, electrosurgery, cryosurgery, chemosurgery, surgical curettement), premalignant lesions (eg, actinic keratoses); second through 14 lesions, each (List separately in [place] 11/02/2016 37143 Office or other outpatient visit for the evaluation and management of an established patient, which requires at least 2 of these 3 [place]il[place] components: An expanded problem focused history; An expanded prob 11/19/2016 75219 Office or other outpatient visit for the evaluation and management of an established patient, which requires at least 2 of these 3 [place] components: A comprehensive history; A comprehensive examination; 12/17/2016 83575 Office or other outpatient visit for the evaluation and management of an established patient, which requires at least 2 of these 3 aguil[place] components: An expanded problem focused history; An expanded prob Results Test Result Range C-Peptide - 08/21/16 10:13 C-Peptide 0.88 ng/mL 0.80-3.90 Glutamic Acid Decarb 65 Ab - 08/21/16 10:13 Glutamic Acid Decarb 65 Ab 0.36 nmol/L <=0.02 Encounters ACCT No. Visit Discharge Status Pt. Type Provider Facility Loc./Unit Complaint Date/Time [id number] 08/18/2013 08/18/2013 CLS Outpatien 12:18:00 23:59:59 t [id number] 12/17/2016 12/17/2016 DIS Outpatien Kahnert, [facility] 1 mon rck 42 15:52:00 23:59:00 t Andersen Singletary Nika Shepherd [facility] [id number] 11/19/2016 11/19/2016 DIS Outpatien Shoffner, [facility] cpe 94 15:27:00 23:59:00 benito [facility] [id number] 11/02/2016 11/02/2016 DIS Outpatien Litzner, [facility] 6 MON SKIN 20 07:26:00 23:59:00 benito [facility] [id number] 10/16/2016 10/16/2016 DIS Outpatien Kahnert, [facility] RASH LT ARM 55 10:44:00 23:59:00 benito [facility] [id number] 09/21/2016 09/21/2016 DIS Outpatien Kahnert, [facility] 1 mon dm 58 15:30:00 23:59:00 benito [facility] [id number] 08/24/2016 08/24/2016 DIS Outpatien Kahnert, [facility] dm 78 15:29:00 23:59:00 t Nathayl [facility]her [facility] [id number] 08/21/2016 08/21/2016 DIS Outpatien Kahnert, [facility] dm 36 09:05:00 23:59:00 t Nathaly [facility] [id number] 08/21/2016 08/21/2016 DIS Outpatien Shoffner, [facility] IM LOST A LOT 53 08:02:00 23:59:00 benito Shepherd OF WEIGHT Clinic SINCE MAY ALWAYS THIRSTY LEGS FEEL [id number] 05/04/2016 05/04/2016 DIS Outpatien Litzner, Via [facility] E21 6 MON GIOVANNA 32 07:35:00 23:59:00 t Koby Shepherd D[facility] SKIN Clinic [id number] 11/19/2015 11/19/2015 CLS Outpatien Shoffner, [facility] IM cpe 45 16:00:00 23:59:59 t Prasanth Taveras [facility] [id number] 11/06/2015 11/06/2015 DIS Outpatien Litzner, Via [facility] E21 SUTURE 97 16:28:00 23:59:00 t Koby Shepherd Derm REMOVAL Clinic [id number] 10/30/2015 10/30/2015 DIS Outpatien Litzner, [facility] E21 excision lt 38 07:59:00 23:59:00 t Koby Shepherd Derm cheek B[facility] Clinic [id number] 10/17/2015 10/17/2015 DIS Outpatien Litzner, [facility] E21 3 OR 4 WK 73 07:32:00 23:59:00 t Koby Teixeira [facility] [id number] 09/17/2015 09/17/2015 DIS Outpatien Litzner, Via [facility] E21 SKIN 70 09:04:00 23:59:00 t Koby Shepherd Derm INFLAMED Clinic INSIDE OF ELBOW HAS BEEN USING MEDICATION [facility] [id number] 08/28/2015 08/28/2015 DIS Outpatien Beverly, [facility] 6 MON GIOVANNA 23 15:41:00 23:59:00 t Armando [facility] [id number] 04/28/2015 04/28/2015 DIS Outpatien Black, [facility] IC FINGER INJ 18 12:25:00 23:59:00 t Margret Duff [facility] [id number] 02/26/2015 02/26/2015 DIS Outpatien Beverly, [facility]21 fu appt 68 15:49:00 23:59:00 benito Michelle [facility] [id number] 01/05/2015 01/05/2015 DIS Outpatien [facility] COUGH/ST 90 13:01:00 23:59:00 t [facility] [id number] 01/02/2015 01/02/2015 DIS Outpatien Kahnert, [facility] cough and 47 11:10:00 23:59:00 t Nathaly Maher [facility] eye irritation [id number] 07/16/2014 07/16/2014 DIS Outpatien Shoffner, [facility] hand pain 78 16:52:00 23:59:00 t Prasanth Taveras [facility] [id number] 07/16/2014 07/16/2014 DIS Outpatien Kahnert, [facility] hand pain 88 15:59:00 23:59:00 t Nathaly Singletary Nika [facility] [id number] 12/10/2014 Document 72 16:04:00 Registrat ion [id number] 12/05/2014 Document 15 15:58:00 Registrat ion [id number] 11/29/2014 Document 31 14:10:00 Registrat ion [id number] 11/29/2014 Document 85 08:43:00 Registrat ion [id number] 11/23/2014 Document 59 12:52:00 Registrat ion [id number] 11/14/2014 Document 38 08:16:00 Registrat ion [id number] 11/13/2014 Document 07 15:30:00 Registrat ion [id number] 06/04/2014 Document 72 12:42:00 Registrat ion
[2017-05-01] MEDS ORDERED: ASPIRIN 81 MG CHEWABLE TABLET PO ONE (14:41)
[2017-05-01] MEDS: SALINE FLUSH 10ml SYRINGE IVF PRN ×2 (14:42→16:04)
[2017-05-01 15:36] VITALS: BMI 25.2
[2017-05-01] MEDS ORDERED: KETOROLAC 15 MG/ML INJECTION IVP ONE (15:56)
[2017-05-01] MEDS ORDERED: SALINE 0.65% NASAL SPRAY 44 ML BOTTLE EA NOSTRIL PRN (18:51)
--- NOTE | 2017-05-01 19:09 | Cardiology History & Physical ---
History of Present Illness Chief complaint: Chest pain HPI: This is a 56 year old patient with a recent diagnosis in 07/2016, of diabetes type 2. He was also started on statin and ASA by PCP for precautionary reasons. He was told by PCP since he has DM he is more likely to have heart disease and to take statin and ASA as precautionary measures. He had a stress test years ago. Never had a heart cath. Father had heart disease in his 60's. s. Last night he fell asleep on the floor and woke up at 0500 to use restroom then went back to sleep on the floor. he felt fine. He awoke again at 0800 and started to have pain in his mid chest. He couldn't take a deep breath because of the pain. Denies nausea or diaphoresis. The chest pain was a dull pressure and tightness without radiation. He took his son to a parade. The pain worsened when he would change positions when he walked he was very slow and when he bent down to pick something up he has chest pain and especially when he lay back, the chest pain worsened. When the chest pain persisted, brought him into the ER. In ER: ECG: SR, ST, HR 100, [place] depression. Dr. Campbell in ER reviewed ECG with Dr. Bal and with symptoms, considering he has pericarditis. In ER he received ASA. He has leukocytosis. Trop negative and CRP is wnl. Temp is 99. He has seen an ENT who recommended sinus surgery to shave off a small amount to open up his sinuses. He has has sinus drainage, a scratchy throat. He has been prescribed Flonase. If he does not use it he can not breath out of his nose. He had a bad cold about 1 yr ago. He and son was positive for Influenza B. states he keeps very busy with job and son's activities. Review of Systems - Constitutional Constitutional: Present: other (sinus congestion. ). Absent: chills, fever(s), headache(s), weight gain, weight loss - EENMT Eyes: Absent: blurry vision Balance: Absent: vertigo Nose: Present: allergies Mouth/Throat: Present: scratchy throat, hoarseness. Absent: sore throat - Cardiovascular Cardiovascular: Present: chest pain. Absent: palpitations, syncope, dyspnea on exertion, orthopnea, edema, heart murmur Rhythm: Present: regular rhythm Vascular: Absent: pedal edema - Respiratory Respiratory: Present: cough, pain on inspiration. Absent: dyspnea on exertion - Gastrointestinal Gastrointestinal: Absent: abdominal pain, change in bowel habits, constipation, diarrhea, melena, nausea - Musculoskeletal Musculoskeletal: Absent: back pain, myalgias - Integumentary/Breasts Integumentary: Absent: rash - Neurological Neurological: Absent: dizziness, headache(s), weakness - Psychiatric Psychiatric: Absent: anxiety, depression - Endocrine Endocrine: Absent: cold intolerance, heat intolerance, palpitations - Hematologic/Lymphatic Hematologic/Lymphatic: Absent: easy bleeding - Allergic/Immunologic Allergic/Immunologic: Present: seasonal rhinorrhea. Absent: tongue swelling, throat swelling PFSH Patient Stated Medical History Angina Yes Diabetes Mellitus Type 2 Yes: Metformin Shingles Yes: 2016 Clinic Medical History Chest pain (Acute Medical) Medical History Updates: Diagnosed with diabetes in 07/2016 Surgical History: Tonsillectomy Family History: FGM of [place] at 72 Father had CABG in his 60's he is alive in his 80's. 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 Does patient use chewing tobacco?: No Current residence: Apartment/Private Home Medications Home Medications Medication Instructions Recorded Confirmed Type Simvastatin 20 mg PO HS #30 10/09/16 05/01/17 History Aspirin [Ecotrin] 81 mg PO HS 05/01/17 05/01/17 History Cholecalciferol (Vitamin D3) 1 tab PO DAILY 05/01/17 05/01/17 History [Vitamin D3] Cinnamon Bark [Cinnamon] 2 cap PO DAILY 05/01/17 05/01/17 History Garlic 1 each PO DAILY 05/01/17 05/01/17 History Metformin HCl [Metformin HCl ER] 1,000 mg PO HS 05/01/17 05/01/17 History Allergies Allergy/AdvReac Type Severity Reaction Status Date / Time No Known Allergies Allergy Verified 05/01/17 15:36 Exam Vital signs: Temperature 99.3 F 05/01/17 17:00 Pulse Rate 80 05/01/17 18:06 Respiratory Rate 16 05/01/17 18:06 Blood Pressure 128/84 05/01/17 18:06 Pulse Oximetry 97 05/01/17 18:06 - Constitutional no acute distress, well nourished, well developed, cooperative - Routine HEENT Exam Head: Present: normocephalic, atraumatic Eye: Present: normal accommodation ENT: Present: mucous membranes moist Nose: clear rhinorrhea - Routine Neck Exam Absent: JVD, carotid bruit - Routine Respiratory Exam Present: CTA bilaterally. Absent: dyspnea - Routine Cardiovascular Exam Present: RRR, no murmur. Absent: JVD - Routine Abdominal Exam Present: soft, normoactive bowel sounds, non distended - Routine Extremities Exam Present: no edema, non tender, full ROM, pulses intact - Routine Back/Spine/Pelvis Exam Back/Spine: Present: full ROM - Routine Skin Exam Present: intact, dry - Routine Neurological Exam Present: alert, oriented X3, moving all extremities, vision grossly intact, hearing grossly intact, normal speech - Routine Psychiatric Exam Present: normal affect, normal thought process, cooperative, good insight, good judgment Results 05/02/17 04:05 05/02/17 04:05 Cardiac Enzymes 05/01/17 Range/Units 17:59 Troponin I < 0.012 (0-0.12) ng/ml Intake and Output 05/01/17 05/01/17 05/01/17 06:59 14:59 22:59 Intake Total 190 / 190 Balance 190 / 190 Intake: Oral 190 / 190 Other: Weight 171 lb 4.787 oz Patient Weight 05/02/17 05:59 Weight 171 lb 4.787 oz Laboratory Results - last 24 hr 05/01/17 05/01/17 05/01/17 14:12 14:12 14:12 WBC 13.0 H RBC 5.38 Hgb 15.9 Hct 46.8 MCV 87.0 MCH 29.6 MCHC 34.0 RDW Std Deviation 40.5 Plt Count 193 MPV 11.3 Immature Gran % (Auto) Not performed Neut % (Auto) Not performed Lymph % (Auto) Not performed [place] % (Auto) Not performed Eos % (Auto) Not performed Baso % (Auto) Not performed Neut # (Auto) Not performed Lymph # (Auto) Not performed [place] # (Auto) Not performed Eos # (Auto) Not performed Baso # (Auto) Not performed Abs Immat Gran (auto) Not performed Neutrophils % (Manual) 92.0 H Lymphocytes % (Manual) 4.0 L Reactive Lymphs % 1.0 H Monocytes % (Manual) 2.0 Basophils % (Manual) 1.0 Neutrophils # (Manual) 12.0 H Lymphocytes # (Manual) 0.5 L Abs React Lymphs (Man) 0.1 H Monocytes # (Manual) 0.3 Basophils # (Manual) 0.1 RBC Morph Comment Normal Turbidity < 20 Sodium 143 Potassium 3.7 Chloride 103 Carbon Dioxide 27 Anion Gap 13 BUN 18.0 Creatinine 1.0 GFR Calculation 77 BUN/Creatinine Ratio 18 Glucose 149 H Calculated Osmolality 280 Calcium 9.1 Total Bilirubin 1.10 Icterus Index < 2 AST 25 ALT 50 Alkaline Phosphatase 84 Troponin I < 0.012 C-Reactive Protein 8.2 Total Protein 7.9 Albumin 4.6 Globulin 3.3 Albumin/Globulin Ratio 1.4 Specimen Hemolysis < 15 Adenovirus (PCR) B.parapertussis DNA PCR C. pneumoniae DNA (PCR) Coronavirus OC43 (PCR) Coronavirus HKU1 (PCR) Coronavirus 229E (PCR) Coronavirus NL63 (PCR) Human Metapneumovir PCR Influenza Type A (PCR) Influenza Type B (PCR) M. pneumoniae (PCR) Parainfluenza 1 (PCR) Parainfluenza 2 (PCR) Parainfluenza 3 (PCR) Parainfluenza 4 (PCR) RSV (PCR) Entero/Rhino (PCR) RVP negative CRP wnl Trop negative x2 - EKG Interpretation EKG: sinus rhythm (05/01/2017 at 1704 ECG: SR, HR 75, WA depression especially in leads: II, III, and AVF. ), not changed from: (05/01/2017 at 1428 ECG: ST, HR 100, WA deression in leads II, III, and AVF. ) Hospital Course This is a general summary of the patient's hospital course. For more details refer to the complete medical record. Assessment and Plan - Attestation Attestation Narrative: 05/04/17 12:26 Recommendation After examining the patient I agree with the above assessment. I am involved in the formulation of the patient's plan of care. - Assessment and Plan (1) Chest pain Status: Acute Likely pericarditis. ECG: SR, with WA depression. Symptoms: constant chest pain exacerbated with position change especially when he lays back and coughs; Trop neg x2 so far. - Leukocytosis - Alleviated with Toradol - will start Aleve (naproxen po BID. - Serial trop and repeat ECG in am. (2) Diabetes mellitus type 2 in nonobese Status: Chronic blood sugars are reasonable. - FBS and 2 hr pc. - Restart metformin home dose. (3) Hyperlipidemia associated with type 2 diabetes mellitus Status: Chronic Check fasting lipid profile cont statin. (4) Leukocytosis, unspecified Status: Resolved NO signs of sepsis. . VSS, Temp slightly elevated at 99.3, - WBC 13, Neutrophils 92% - elevated and Lymphs 4% low. - CXR: no infiltrates. - check U/A - Tylenol prn.
[2017-05-01] MEDS ORDERED: ACETAMINOPHEN 500 MG TABLET PO PRN (20:35)
[2017-05-01] MEDS ORDERED: NITROGLYCERIN 0.4 MG SUBLINGUAL TABLET SL PRN (20:35)
[2017-05-01] MEDS ORDERED: ONDANSETRON 4 MG/2 ML INJECTION IVP PRN (20:35)
[2017-05-01] MEDS ORDERED: CALCIUM CARBONATE Chewable 750mg TABLET PO PRN (20:37)
[2017-05-01] MEDS ORDERED: DOCUSATE SODIUM 100 MG CAPSULE PO PRN (20:38)
[2017-05-01] MEDS ORDERED: METFORMIN 1,000 MG TABLET PO ONE (21:00)
[2017-05-01] MEDS ORDERED: ASPIRIN *EC* 81 MG TABLET PO SCH (21:00)
[2017-05-02] MEDS ORDERED: OMEPRAZOLE 20 MG CAPSULE PO SCH (06:30)
[2017-05-02] MEDS ORDERED: NAPROXEN 500 MG TABLET PO SCH (08:00)
--- NOTE | 2017-05-02 09:21 | XRay Report ---
Indication: Chest Pain PROCEDURE: XR chest 1V: Encounter: Initial Comparison: None FINDINGS: The lungs are clear. There is no abnormal airspace opacity, pleural effusion or pneumothorax identified. The heart size, pulmonary vasculature and mediastinum are within normal limits. No significant skeletal abnormality is seen. IMPRESSION: No acute cardiopulmonary abnormality. .
[2017-05-02 13:42] VITALS: TEMP 98.7
--- NOTE | 2017-05-02 16:49 | Discharge Summary ---
<VasiliyMegan Omar - Last Filed: 05/02/17 16:41> Discharge Information Date of admission: 05/01/17 15:32 Anticipated date of discharge: 05/02/17 Attending Physician: Nitin Bal MD Primary care physician: OTHER - Discharge Diagnosis (1) Chest pain Status: Acute (2) Diabetes mellitus type 2 in nonobese Status: Chronic (3) Hyperlipidemia associated with type 2 diabetes mellitus Status: Chronic (4) Leukocytosis, unspecified Status: Resolved Chest pain - Laboratory Labs: 05/02/17 04:05 05/02/17 04:05 Laboratory Last Values WBC 7.9 T/MM3 (4.5-11.0) 05/02/17 04:05 RBC 5.28 M/MM3 (4.50-5.90) 05/02/17 04:05 Hgb 15.5 GM/DL (13.5-17.5) 05/02/17 04:05 Hct 46.0 % (41-53) 05/02/17 04:05 MCV 87.1 UM3 (80-100) 05/02/17 04:05 MCH 29.4 UUG (26-34) 05/02/17 04:05 MCHC 33.7 GM/DL (31-37) 05/02/17 04:05 RDW Std Deviation 41.4 FL (36.9-50.2) 05/02/17 04:05 Plt Count 182 T/MM3 (130-400) 05/02/17 04:05 MPV 11.2 UM3 (9.4-12.4) 05/02/17 04:05 Immature Gran % (Auto) 0.1 % (0.0-0.5) 05/02/17 04:05 Neut % (Auto) 64.5 % (33-66) 05/02/17 04:05 Lymph % (Auto) 22.4 % (23-45) L 05/02/17 04:05 [place] % (Auto) 10.9 % (0-9.0) H 05/02/17 04:05 Eos % (Auto) 1.8 % (0-4) 05/02/17 04:05 Baso % (Auto) 0.3 % (0-2) 05/02/17 04:05 Neut # (Auto) 5.1 T/MM3 (1.8-7.7) 05/02/17 04:05 Lymph # (Auto) 1.8 T/MM3 (1-4.8) 05/02/17 04:05 [place] # (Auto) 0.9 T/MM3 (0-0.8) H 05/02/17 04:05 Eos # (Auto) 0.1 T/MM3 (0-0.5) 05/02/17 04:05 Baso # (Auto) 0.0 T/MM3 (0-0.2) 05/02/17 04:05 Abs Immat Gran (auto) 0.01 T/MM3 (0.00-0.03) 05/02/17 04:05 Neutrophils % (Manual) 92.0 % (33-66) H 05/01/17 14:12 Lymphocytes % (Manual) 4.0 % (23-45) L 05/01/17 14:12 Reactive Lymphs % 1.0 % (0-0) H 05/01/17 14:12 Monocytes % (Manual) 2.0 % (0-9.0) 05/01/17 14:12 Basophils % (Manual) 1.0 % (0-2) 05/01/17 14:12 Neutrophils # (Manual) 12.0 T/MM3 (1.8-7.7) H 05/01/17 14:12 Lymphocytes # (Manual) 0.5 T/MM3 (1-4.8) L 05/01/17 14:12 Abs React Lymphs (Man) 0.1 T/MM3 (0-0) H 05/01/17 14:12 Monocytes # (Manual) 0.3 T/MM3 (0-0.8) 05/01/17 14:12 Basophils # (Manual) 0.1 T/MM3 (0-0.2) 05/01/17 14:12 RBC Morph Comment Normal 05/01/17 14:12 Turbidity < 20 (0-20) 05/02/17 04:05 Sodium 142 MEQ/L (134-144) 05/02/17 04:05 Potassium 3.8 MEQ/L (3.6-5) 05/02/17 04:05 Chloride 106 MEQ/L (98-107) 05/02/17 04:05 Carbon Dioxide 25 MEQ/L (22-30) 05/02/17 04:05 Anion Gap 11 MEQ/L (5-15) 05/02/17 04:05 BUN 24.0 MG/DL (9-20) H 05/02/17 04:05 Creatinine 1.0 MG/DL (0.8-1.5) 05/02/17 04:05 GFR Calculation 77 05/02/17 04:05 BUN/Creatinine Ratio 24 RATIO (6-26) 05/02/17 04:05 Glucose 122 MG/DL (75-110) H 05/02/17 04:05 Glucometer 122 mg/dL (65-110) 05/02/17 10:36 Calculated Osmolality 278 MOSM/KG (261-280) 05/02/17 04:05 Calcium 8.8 MG/DL (8.4-10.2) 05/02/17 04:05 Total Bilirubin 1.10 MG/DL (0.20-1.30) 05/01/17 14:12 Icterus Index < 2 (0-7) 05/02/17 04:05 AST 25 U/L (17-59) 05/01/17 14:12 ALT 50 U/L (21-72) 05/01/17 14:12 Alkaline Phosphatase 84 U/L (38-126) 05/01/17 14:12 Troponin I < 0.012 ng/ml (0-0.12) 05/02/17 04:05 C-Reactive Protein 8.2 MG/L (0-9) 05/01/17 14:12 Total Protein 7.9 G/DL (6.3-8.2) 05/01/17 14:12 Albumin 4.6 G/DL (3.5-5.0) 05/01/17 14:12 Globulin 3.3 G/DL (2.4-3.6) 05/01/17 14:12 Albumin/Globulin Ratio 1.4 RATIO (1.1-2.2) 05/01/17 14:12 Specimen Hemolysis < 15 (0-25) 05/02/17 04:05 Ur Collection Type Urine, clean catch 05/01/17 22:34 Urine Color Yellow (YELLOW) 05/01/17 22:34 Urine Clarity Clear 05/01/17 22:34 Urine pH 5.5 (5.0-8.0) 05/01/17 22:34 Ur Specific [place] >=1.030 (1.015-1.025) H 05/01/17 22:34 Urine Protein Negative (NEGATIVE) 05/01/17 22:34 Urine Glucose (UA) Negative (NEGATIVE) 05/01/17 22:34 Urine Ketones Negative (NEGATIVE) 05/01/17 22:34 Urine Occult Blood Negative (NEGATIVE) 05/01/17 22:34 Urine Nitrate Negative (NEGATIVE) 05/01/17 22:34 Urine Bilirubin Negative (NEGATIVE) 05/01/17 22:34 Urine Urobilinogen 0.2 EU/DL (NORMAL) 05/01/17 22:34 Ur Leukocyte Esterase Negative (NEGATIVE) 05/01/17 22:34 Urinalysis Comment Microscopic not ind. 05/01/17 22:34 Adenovirus (PCR) Negative (Negative) 05/01/17 16:04 B.parapertussis DNA PCR Negative (Negative) 05/01/17 16:04 C. pneumoniae DNA (PCR) Negative (Negative) 05/01/17 16:04 Coronavirus OC43 (PCR) Negative (Negative) 05/01/17 16:04 Coronavirus HKU1 (PCR) Negative (Negative) 05/01/17 16:04 Coronavirus 229E (PCR) Negative (Negative) 05/01/17 16:04 Coronavirus NL63 (PCR) Negative (Negative) 05/01/17 16:04 Human Metapneumovir PCR Negative (Negative) 05/01/17 16:04 Influenza Type A (PCR) Negative (Negative) 05/01/17 16:04 Influenza Type B (PCR) Negative (Negative) 05/01/17 16:04 M. pneumoniae (PCR) Negative (Negative) 05/01/17 16:04 Parainfluenza 1 (PCR) Negative (Negative) 05/01/17 16:04 Parainfluenza 2 (PCR) Negative (Negative) 05/01/17 16:04 Parainfluenza 3 (PCR) Negative (Negative) 05/01/17 16:04 Parainfluenza 4 (PCR) Negative (Negative) 05/01/17 16:04 RSV (PCR) Negative (Negative) 05/01/17 16:04 Entero/Rhino (PCR) Negative (Negative) 05/01/17 16:04 - Radiology Radiology: CXR: IMPRESSION: No acute cardiopulmonary abnormality. History of Present Illness HPI: This is a 56 year old patient with a recent diagnosis in 07/2016, of diabetes type 2. He was also started on statin and ASA by PCP for precautionary reasons. He was told by PCP since he has DM he is more likely to have heart disease and to take statin and ASA as precautionary measures. He had a stress test years ago. Never had a heart cath. Father had heart disease in his 60's. s. Last night he fell asleep on the floor and woke up at 0500 to use restroom then went back to sleep on the floor. he felt fine. He awoke again at 0800 and started to have pain in his mid chest. He couldn't take a deep breath because of the pain. Denies nausea or diaphoresis. The chest pain was a dull pressure and tightness without radiation. He took his son to a parade. The pain worsened when he would change positions when he walked he was very slow and when he bent down to pick something up he has chest pain and especially when he lay back, the chest pain worsened. When the chest pain persisted, brought him into the ER. In ER: ECG: SR, ST, HR 100, TX depression. Dr. Campbell in ER reviewed ECG with Dr. Bal and with symptoms, considering he has pericarditis. In ER he received ASA. He has leukocytosis. Trop negative and CRP is wnl. Temp is 99. He has seen an ENT who recommended sinus surgery to shave off a small amount to open up his sinuses. He has has sinus drainage, a scratchy throat. He has been prescribed Flonase. If he does not use it he can not breath out of his nose. He had a bad cold about 1 yr ago. He and son was positive for Influenza B. states he keeps very busy with job and son's activities. Hospital Course This is a general summary of the patient's hospital course. For more details refer to the complete medical record. Trop neg x3. ECG: TX depression in inferior leads. NOT an [place]. likely pericarditis. All 4 ECG's are the same. He was given Toradol x1 for complete relief. Started on Naprosyn BID. CPR 8.2 ( wnl). His WBC was slightly elevated on admit but next day normalized likely due to stress response. viral panel from nasal swab neg. He has seen ENT and is to have sinus surgery in the future. He is newly Dx Diabetic. blood sugars well controlled. All other labs ok. VS stable. Stable for DC to home. Time spent with patient: 25 - 35 minutes Exam Vital signs: Temperature 98.7 F 05/02/17 12:00 Pulse Rate 74 05/02/17 13:00 Respiratory Rate 22 05/02/17 13:00 Blood Pressure 132/84 05/02/17 13:00 Pulse Oximetry 98 05/02/17 13:00 - Constitutional no acute distress, well nourished, well developed, cooperative - Routine HEENT Exam Eye: Present: normal accommodation ENT: Present: mucous membranes moist Nose: other (he feels his nose is congested. He declines sprays. He has spray at home he will use. ) - Routine Neck Exam Present: full ROM - Routine Respiratory Exam Present: CTA bilaterally - Routine Cardiovascular Exam Present: RRR, no murmur - Routine Abdominal Exam Present: soft, normoactive bowel sounds - Routine Extremities Exam Present: no edema, pulses intact, normal capillary refill - Routine Back/Spine/Pelvis Exam Back/Spine: Present: full ROM - Routine Skin Exam Present: intact, dry - Routine Neurological Exam Present: alert, oriented X3, moving all extremities, vision grossly intact, hearing grossly intact, normal speech - Routine Psychiatric Exam Present: normal affect, normal thought process, cooperative, good insight, good judgment Results 05/02/17 04:05 05/02/17 04:05 Cardiac Enzymes 05/01/17 05/02/17 05/02/17 Range/Units 17:59 00:03 04:05 Troponin I < 0.012 < 0.012 < 0.012 (0-0.12) ng/ml CBC 05/02/17 Range/Units 04:05 WBC 7.9 (4.5-11.0) T/MM3 RBC 5.28 (4.50-5.90) M/MM3 Hgb 15.5 (13.5-17.5) GM/DL Hct 46.0 (41-53) % Plt Count 182 (130-400) T/MM3 Neut # (Auto) 5.1 (1.8-7.7) T/MM3 Lymph # (Auto) 1.8 (1-4.8) T/MM3 [place] # (Auto) 0.9 H (0-0.8) T/MM3 Eos # (Auto) 0.1 (0-0.5) T/MM3 Baso # (Auto) 0.0 (0-0.2) T/MM3 Comprehensive Metabolic Panel 05/02/17 Range/Units 04:05 Sodium 142 (134-144) MEQ/L Potassium 3.8 (3.6-5) MEQ/L Chloride 106 (98-107) MEQ/L Carbon Dioxide 25 (22-30) MEQ/L BUN 24.0 H (9-20) MG/DL Creatinine 1.0 (0.8-1.5) MG/DL Glucose 122 H (75-110) MG/DL Calcium 8.8 (8.4-10.2) MG/DL Intake and Output 05/02/17 05/02/17 05/02/17 06:59 14:59 22:59 Intake Total 885 / 885 Output Total Balance 884 / 884 Intake: Oral 885 / 885 Output: Urine Amount (Catheter) Other: Weight 171 lb 1.259 oz Patient Weight 05/03/17 06:59 Weight 171 lb 1.259 oz - Imaging and Cardiology Imaging & Cardiology Narrative: ECG: SR, depressed TX in inferior leads. this is not an [place]. ECGx4 the same. Discharge Plan - Med Rec/Dispo Referrals/Follow Up: Nitin Bal MD [Physician] - (in 1 to 2 weeks for echo and office visit. ) [place] Instructions: Acute Pericarditis (GEN) Prescriptions: New Naproxen [Aleve] 220 mg PO BIDWM tablet Nitroglycerin [Nitrostat] 0.4 mg SL Q5MIN3 PRN tablet PRN Reason: Chest Pain Continue Cholecalciferol (Vitamin D3) [Vitamin D3] 1 tab PO DAILY Garlic 1 each PO DAILY Cinnamon Bark [Cinnamon] 2 cap PO DAILY Metformin HCl [Metformin HCl ER] 1,000 mg PO HS Simvastatin 20 mg PO HS #30 Aspirin [Ecotrin] 81 mg PO HS Discontinued Sodium Chloride/Sodium Bicarb [Nasa Mist Saline Reese] 1 spray IZABEL HS PRN PRN Reason: Allergy Symptoms - Disposition 01 Discharged Home, Self-Care - Dismissal Complete Discharge Instructions are:: Complete Attestation Narriative - Attestation Attestation Narrative: Dr. Bal did not see pt on this day. I discussed pt's symptoms, ECG and labs with Dr. Bal. He has determined he can be DC with F/u in our office. <Nitin Bal - Last Filed: 05/04/17 12:27> Discharge Information Date of admission: 05/01/17 15:32 Attending Physician: Nitin Bal MD Primary care physician: OTHER - Discharge Diagnosis (1) Chest pain Status: Acute (2) Diabetes mellitus type 2 in nonobese Status: Chronic (3) Hyperlipidemia associated with type 2 diabetes mellitus Status: Chronic (4) Leukocytosis, unspecified Status: Resolved - Laboratory Labs: 05/02/17 04:05 05/02/17 04:05 Hospital Course This is a general summary of the patient's hospital course. For more details refer to the complete medical record. Exam Vital signs: Temperature 98.7 F 05/02/17 12:00 Pulse Rate 56 L 05/02/17 16:00 Respiratory Rate 12 05/02/17 16:00 Blood Pressure 119/76 05/02/17 16:00 Pulse Oximetry 97 05/02/17 16:00 Results 05/02/17 04:05 05/02/17 04:05 Attestation Narriative - Attestation Attestation Narrative: 05/04/17 12:27 Recommendation After examining the patient I agree with the above assessment. I am involved in the formulation of the patient's plan of care.
[2017-05-02 16:56] VITALS: PULSE 56
[2017-05-02] MEDS ORDERED: NAPROXEN 220 MG TABLET PO SCH (17:30)
[2017-05-02 17:40] VITALS: BP 119/76; RESP 12; O2SAT 97
[2017-05-02] MEDS ORDERED: METFORMIN 1,000 MG TABLET PO SCH (21:00)
[2017-05-02] MEDS ORDERED: SIMVASTATIN 20 MG TABLET PO SCH (21:00)
== END 2017-05-02 17:35 | disposition home or self-care (01) ==
LOC: ED 13:56 → CCU 13:56
PROVIDERS: ADMIT Internal Medicine Cardiovascular Disease; ATTEND Internal Medicine Cardiovascular Disease